=== PATIENT | male | born 1970 | race Caucasian/White ===

== ENCOUNTER 2016-08-28 12:03 | Emergency (ER) | payer SELFPAY ==
--- NOTE | 2016-08-28 12:19 | ER Document Report ---
ED Medical Screen (RME) - General Stated Complaint: CONGESTION,COUGH,VOMITING Notes: 46 yo male c/o cough and congestion x 2-3 weeks. shortness of breath worse x 3 days. + fever. + hx/o pneumonia. + smoker. + hx/o IDDM, HTN. feeling very thirsty past several days. + n/v. TRAVEL OUTSIDE OF THE [place] IN LAST 30 DAYS: No - Related Data Allergies/Adverse Reactions: Iodinated Contrast Media - Oral and Allergy (Severe, Verified 04/10/15 11:38) Anaphylaxis iodine Allergy (Severe, Verified 04/10/15 11:38) Anaphylaxis Penicillins Allergy (Severe, Verified 04/10/15 11:38) throat swelling Shellfish * [Shellfish] Allergy (Severe, Verified 04/10/15 11:38) Anaphylaxis Past Medical History - Past Medical History Cardiac Medical History: Reports: Hx Hypertension Denies: Hx Coronary Artery Disease, Hx Heart Attack Pulmonary Medical History: Reports: Hx Pneumonia - YEARS AGO Denies: Hx Asthma, Hx Bronchitis, Hx COPD Neurological Medical History: Denies: Hx Cerebrovascular Accident, Hx Seizures Endocrine Medical History: Reports: Hx Diabetes Mellitus Type 1, 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 GI Medical History: Reports: Hx Hiatal Hernia Musculoskeltal Medical History: Reports Hx Arthritis - GENERALIZED Psychiatric Medical History: Reports: Hx Depression Past Surgical History: Reports: Hx Orthopedic Surgery - L HIP - Immunizations Hx Diphtheria, Pertussis, Tetanus Vaccination: Yes Physical Exam - Vital signs Vitals: Temp Pulse Resp BP Pulse Ox 97.4 F 109 H 24 H 165/78 H 100 08/28/16 12:14 08/28/16 12:14 08/28/16 12:14 08/28/16 12:14 08/28/16 12:14 Course - Vital Signs Vital signs: Temp Pulse Resp BP Pulse Ox 97.4 F 109 H 24 H 165/78 H 100 08/28/16 12:14 08/28/16 12:14 08/28/16 12:14 08/28/16 12:14 08/28/16 12:14
--- NOTE | 2016-08-28 13:26 | ER Document Report ---
ED Respiratory Problem - General Chief Complaint: Breathing Difficulty Stated Complaint: CONGESTION,COUGH,VOMITING Time seen by provider: 13:26 Mode of Arrival: Ambulatory Information source: Patient Notes: 46 yo smoker diabetic male with cough and congestion for 3 weeks. No chest pain or shortness of breath, some vomiting, no diarrhea. No fever or chills. No inhaled bronchodilaters at home. TRAVEL OUTSIDE OF THE [place] IN LAST 30 DAYS: No - Related Data Allergies/Adverse Reactions: Iodinated Contrast Media - Oral and Allergy (Severe, Verified 08/28/16 12:18) Anaphylaxis iodine Allergy (Severe, Verified 08/28/16 12:18) Anaphylaxis Penicillins Allergy (Severe, Verified 08/28/16 12:18) throat swelling Shellfish * [Shellfish] Allergy (Severe, Verified 08/28/16 12:18) Anaphylaxis Past Medical History - General Information source: Patient - Social History Smoking Status: Current Every Day Smoker Chew tobacco use (# tins/day): No Frequency of alcohol use: None Drug Abuse: None Lives with: Spouse/Significant other Family History: Reviewed & Not Pertinent, DM - Relatives have both type I and type II diabetes respectively Patient has suicidal ideation: No Patient has homicidal ideation: No - Past Medical History Cardiac Medical History: Reports: Hx Hypertension Pulmonary Medical History: Reports: Hx Pneumonia - YEARS AGO Endocrine Medical History: Reports: Hx Diabetes Mellitus Type 1 GI Medical History: Reports: Hx Hiatal Hernia Musculoskeltal Medical History: Reports Hx Arthritis - GENERALIZED Psychiatric Medical History: Reports: Hx Depression Past Surgical History: Reports: Hx Orthopedic Surgery - L HIP - Immunizations Hx Diphtheria, Pertussis, Tetanus Vaccination: Yes Hx Pneumococcal Vaccination: 06/20/12 Review of Systems - Review of Systems Constitutional: No symptoms reported EENT: See HPI Cardiovascular: No symptoms reported Respiratory: See HPI Gastrointestinal: No symptoms reported Genitourinary: No symptoms reported Male Genitourinary: No symptoms reported Musculoskeletal: No symptoms reported Skin: No symptoms reported Hematologic/Lymphatic: No symptoms reported Neurological/Psychological: No symptoms reported Physical Exam - Vital signs Vitals: Temp Pulse Resp BP Pulse Ox 97.4 F 109 H 24 H 165/78 H 100 08/28/16 12:14 08/28/16 12:14 08/28/16 12:14 08/28/16 12:14 08/28/16 12:14 Interpretation: Normal - General General appearance: Alert, Anxious In distress: None - thin - HEENT Head: Normocephalic, Atraumatic Eyes: Normal Conjunctiva: Normal Pupils: PERRL Tympanic membrane: Normal Mucous membranes: Dry Pharynx: Erythema Neck: Supple. No: Lymphadenopathy - Respiratory Respiratory status: No respiratory distress Chest status: Nontender Breath sounds: Rhonchi, Wheezing - expiratory bilateral Chest palpation: Normal - Cardiovascular Rhythm: Regular Heart sounds: Normal auscultation Murmur: No - Abdominal Inspection: Normal Distension: No distension Bowel sounds: Normal Tenderness: Nontender Organomegaly: No organomegaly - Back Back: Normal, Nontender - Extremities General upper extremity: Normal inspection, Nontender, Normal color, Normal ROM , Normal temperature General lower extremity: Normal inspection, Nontender, Normal color, Normal ROM , Normal temperature, Normal weight bearing. No: Magdy's sign - Neurological Neuro grossly intact: Yes Cognition: Normal Orientation: AAOx4 Watson Coma Scale Eye Opening: Spontaneous Watson Coma Scale Verbal: Oriented Watson Coma Scale Motor: Obeys Commands Watson Coma Scale Total: 15 Speech: Normal Motor strength normal: LUE, RUE, LLE, RLE Sensory: Normal - Psychological Associated symptoms: Normal affect, Normal mood - Skin Skin Temperature: Warm Skin Moisture: Dry Skin Color: Normal Course - Re-evaluation Re-evalutation: 08/28/16 13:38 consult/presentation of pt to dr. lockwood per [facility] guidelines no lactate needed, no further orders., chest xray is neg per rad 08/28/16 14:24 no wheeze after nebulizer he feels better. 08/28/16 14:28 Patient goes to the [facility] for his follow-up. I'm giving him copies of labs and chest x-ray report. Discussed the plan for discharge and disposition with Dr. lockwood. tx pt with inhaled bronchodilaters, azitrhomycin, prednisone. - Vital Signs Vital signs: Temp Pulse Resp BP Pulse Ox 97.5 F 109 H 12 151/80 H 100 08/28/16 15:05 08/28/16 12:14 08/28/16 14:39 08/28/16 14:40 08/28/16 14:40 - Laboratory Result Diagrams: 08/28/16 13:30 08/28/16 13:30 Laboratory results interpreted by me: 08/28/16 13:30 Sodium 136.5 L Glucose 126 H Discharge - Discharge Clinical Impression: Bronchitis, upper respiratory infection, Wheezing, Elevated blood pressure reading Diabetes Qualifiers: Diabetes mellitus type: type 1 Diabetes mellitus complication status: without complication Qualified Code(s): E10.9 - Type 1 diabetes mellitus without complications Vomiting Qualifiers: Vomiting type: unspecified Vomiting Intractability: non-intractable Nausea presence: without nausea Qualified Code(s): R11.11 - Vomiting without nausea Condition: Good Disposition: HOME, SELF-CARE Instructions: Steroid Medication, Azithromycin ([facility]), Inhaled Bronchodilators ( [facility]), [facility], Stop Smoking ([facility]) Additional Instructions: plenty of fluids orally rest use the nebulizer at least 4 times per day use the inhaler 2 puffs every 3 hours as needed when not at home for cough and wheeze. to er if worse see [facility] this week for follow up of blood pressure and this illness follow your glucoses carefully, return if out of control stop smoking Prescriptions: Albuterol Sulfate [Ventolin 0.083% Neb 2.5 mg/3 mL Ampul] 2.5 mg NEB Q3HP PRN # 25 vial PRN Reason: Albuterol Sulfate [Proair HFA Inhalation Aerosol 8.5 gm MDI] 2 puff IH Q3HP PRN #1 hfa.aer.ad PRN Reason: Azithromycin [Zithromax] 250 mg PO DAILY #4 tablet Nebulizer [Nebulizer Machine] 1 each MC ASDIR PRN #1 kit PRN Reason: Prednisone [Deltasone 20 mg Tablet] 40 mg PO DAILY #8 tablet Forms: Return to Work Referrals: [facility] [Primary Care Provider] - Follow up as needed
[2016-08-28] MEDS ORDERED: NORMAL SALINE 1000 ML 1,000 ML IV ONE (13:36)
[2016-08-28] MEDS ORDERED: IPRATROPIUM/ALBUTEROL 0.5-2.5 MG/3 ML AMPUL NEB ONE (13:36)
[2016-08-28 13:45] LABS: ABSOLUTE BASOPHILS # (AUTO) 0.1 10^3/uL (0.0-0.2); ABSOLUTE EOSINOPHILS # (AUTO) 0.2 10^3/uL (0.0-0.6); ABSOLUTE LYMPHOCYTES (AUTO) 1.8 10^3/uL (0.5-4.7); ABSOLUTE MONOCYTES (AUTO) 0.4 10^3/uL (0.1-1.4); ABSOLUTE NEUT (AUTO) 4.9 10^3/uL (1.7-8.2); BASOPHILS % (AUTO) 0.9 % (0-2); EOSINOPHILS % (AUTO) 2.8 % (0-6); HEMATOCRIT 43.7 % (37.9-51.0); HEMOGLOBIN 14.7 g/dL (13.5-17.0); HGB HCT DIFFERENCE 0.4; LYMPHOCYTES % (AUTO) 24.2 % (13-45); MEAN CORPUSCULAR HEMOGLOBIN 30.5 pg (27.0-33.4); MEAN CORPUSCULAR HGB CONC 33.6 g/dL (32.0-36.0); MEAN CORPUSCULAR VOLUME 91 fl (80-97); RED BLOOD COUNT 4.81 10^6/uL (4.35-5.55); RED CELL DISTRIBUTION WIDTH 13.6 % (11.5-14.0); SEGMENTED NEUTROPHILS % (AUTO) 67.1 % (42-78); WHITE BLOOD COUNT 7.3 10^3/uL (4.0-10.5)
--- NOTE | 2016-08-28 13:50 | ER Document Report ---
Doctor's Note Notes: 08/28/16 13:49 46-year-old male with 3 week history of cough productive of white sputum, occasional nausea and poor appetite. He reports his continue to take his insulin. He denies chest or abdominal pain. Skin warm and dry Chest scattered rhonchi bilaterally breath sounds equal good aeration oxygen must use Heart regular rate and rhythm without murmur Extremities warm 2+ pulses no cyanosis no edema She has intermittently seen and examined by myself with treatment decisions approved by myself
[2016-08-28 14:09] LABS: ALANINE AMINOTRANSFERASE 40 U/L (21-72); ALBUMIN 4.1 g/dL (3.5-5.0); ALKALINE PHOSPHATASE 77 U/L (38-126); ANION GAP 9 (5-19); ASPARTATE AMINO TRANSFERASE 30 U/L (17-59); BILIRUBIN,TOTAL 0.6 mg/dL (0.2-1.3); BLOOD UREA NITROGEN 15 mg/dL (7-20); CALCIUM 10.1 mg/dL (8.4-10.2); CARBON DIOXIDE 29 mmol/L (22-30); CHLORIDE 99 mmol/L (98-107); CREATININE RESULT 1.05 mg/dL (0.52-1.25); GLUCOSE 126 mg/dL (75-110); LIPASE 123.3 U/L (23-300); POTASSIUM 4.6 mmol/L (3.6-5.0); SODIUM 136.5 mmol/L (137-145); TOTAL PROTEIN 6.8 g/dL (6.3-8.2)
[2016-08-28] MEDS ORDERED: PREDNISONE 20 MG TABLET PO ONE (14:26)
[2016-08-28] MEDS ORDERED: AZITHROMYCIN 250 MG TABLET PO ONE (14:26)
[2016-08-28 14:44] VITALS: BP 151/80
[2016-08-28] MEDS ORDERED: ALBUTEROL SULFATE HFA (90 MCG/PUFF) 200 PUFF/8.5 GM MDI IH ONE (15:00)
[2016-08-28 15:01] LABS: APPEARANCE,URINE CLEAR; BILIRUBIN,URINE NEGATIVE (NEGATIVE); GLUCOSE, URINE NEGATIVE (NEGATIVE); KETONES,URINE NEGATIVE (NEGATIVE); LEUKOCYTE ESTERASE,URINE NEGATIVE (NEGATIVE); NITRITE,URINE NEGATIVE (NEGATIVE); PROTEIN,URINE NEGATIVE (NEGATIVE); URINE SPECIFIC GRAVITY 1.008; UROBILINOGEN,URINE NEGATIVE mg/dL (<2.0)
== END 2016-08-28 13:05 | disposition home or self-care (01) ==
LOC: ER 12:03
DX: J40 Bronchitis, not specified as acute or chronic (principal); J06.9 Acute upper respiratory infection, unspecified; R11.11 Vomiting without nausea; R05 Cough; I10 Essential (primary) hypertension; E10.9 Type 1 diabetes mellitus without complications; R06.2 Wheezing; F17.200 Nicotine dependence, unspecified, uncomplicated; Z88.0 Allergy status to penicillin; Z91.041 Radiographic dye allergy status; Z91.013 Allergy to seafood; Z87.892 Personal history of anaphylaxis; Z87.01 Personal history of pneumonia (recurrent)
CPT/HCPCS: 94640; 99284; 96360; 36415; 83690; 85025; 80053; 81001; 71020; J7512; J7030; J3490; J7620

== ENCOUNTER 2016-09-03 16:51 | Emergency (ER) | payer SELFPAY ==
--- NOTE | 2016-09-03 17:18 | ER Document Report ---
ED Medical Screen (RME) - General Chief Complaint: Breathing Difficulty Stated Complaint: DIFFICULTY BREATHING,COUGH,CONGESTION Time seen by provider: 17:16 Mode of Arrival: Ambulatory Information source: Patient Notes: 46-year-old male presents to ED for cough cold congestion for about 3 weeks. States they were in the emergency room last week. Recently quit smoking. Denies history of COPD. Inspiratory and expiratory wheezes at this time. I have greeted and performed a rapid initial assessment of this patient. A comprehensive ED assessment and evaluation of the patient, analysis of test results and completion of medical decision making process will be conducted by an additional ED providers. TRAVEL OUTSIDE OF THE [place] IN LAST 30 DAYS: No - Related Data Allergies/Adverse Reactions: Iodinated Contrast Media - Oral and Allergy (Severe, Verified 08/28/16 12:18) Anaphylaxis iodine Allergy (Severe, Verified 08/28/16 12:18) Anaphylaxis Penicillins Allergy (Severe, Verified 08/28/16 12:18) throat swelling Shellfish * [Shellfish] Allergy (Severe, Verified 08/28/16 12:18) Anaphylaxis Past Medical History - Past Medical History Cardiac Medical History: Reports: Hx Hypertension Denies: Hx Coronary Artery Disease, Hx Heart Attack Pulmonary Medical History: Reports: Hx Pneumonia - YEARS AGO Denies: Hx Asthma, Hx Bronchitis, Hx COPD Neurological Medical History: Denies: Hx Cerebrovascular Accident, Hx Seizures Endocrine Medical History: Reports: Hx Diabetes Mellitus Type 1, 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 Renal/ Medical History: Denies: Hx Peritoneal Dialysis GI Medical History: Reports: Hx Hiatal Hernia Musculoskeltal Medical History: Reports Hx Arthritis - GENERALIZED Psychiatric Medical History: Reports: Hx Depression Past Surgical History: Reports: Hx Orthopedic Surgery - L HIP - Immunizations Hx Diphtheria, Pertussis, Tetanus Vaccination: Yes Physical Exam - Vital signs Vitals: Temp Pulse Resp BP Pulse Ox 98.4 F 91 18 137/68 H 100 09/03/16 17:09/03/16 17:09/03/16 17:09/03/16 17:09/03/16 17:09 Course - Vital Signs Vital signs: Temp Pulse Resp BP Pulse Ox 98.4 F 91 18 137/68 H 100 09/03/16 17:09 09/03/16 17:09 09/03/16 17:09/03/16 17:09 09/03/16 17:09
[2016-09-03] MEDS ORDERED: IPRATROPIUM/ALBUTEROL 0.5-2.5 MG/3 ML AMPUL NEB ONE ×3 (17:19→22:43)
[2016-09-03] MEDS: ALBUTEROL SULFATE 0.083% NEB 2.5 MG/3 ML AMPUL NEB SCH ×2 (17:28→20:27)
[2016-09-03] MEDS ORDERED: NORMAL SALINE 1000 ML 1,000 ML IV ONE ×2 (19:22→21:41)
[2016-09-03] MEDS ORDERED: LEVOFLOXACIN 750 MG TABLET PO ONE (19:23)
--- NOTE | 2016-09-03 19:23 | ER Document Report ---
ED Respiratory Problem - General Mode of Arrival: Ambulatory Information source: Patient TRAVEL OUTSIDE OF THE [place] IN LAST 30 DAYS: No - HPI Patient complains to provider of: Cough, Short of breath Onset: Other - 3 weeks ago Duration: Worse/persistent Context: Other - see above Associated symptoms: Other - see above <LACEY PEREZ - Last Filed: 09/03/16 21:05> <BERNADINE PALACIOS - Last Filed: 09/04/16 03:28> - General Chief Complaint: Cough Stated Complaint: DIFFICULTY BREATHING,COUGH,CONGESTION Notes: 46 year old male with history of type 1 diabetes and smoking presents to the ED complaining of a cough and chest congestion for the past 3 weeks. Patient is additionally complaining of shortness of breath and fever. Patient states that his symptoms worsened today and have been progressively worsening since symptoms began. Patient was seen in the ED 6 days ago for the same symptoms and was put on steroids. The complains that the patient's blood glucose levels were elevated after being put on steroids. Patient states that breathing treatments have not helped his symptoms. Patient additionally states that he has been having difficulty keeping his blood sugar below 250. Patient denies history of asthma, COPD, and blood clots. Patient denies receiving the flu or pneumonia shot. Patient receives primary care at the [facility]. ( LACEY PEREZ) - Related Data Allergies/Adverse Reactions: Iodinated Contrast Media - Oral and Allergy (Severe, Verified 09/03/16 17:18) Anaphylaxis iodine Allergy (Severe, Verified 09/03/16 17:18) Anaphylaxis Penicillins Allergy (Severe, Verified 09/03/16 17:18) throat swelling Shellfish * [Shellfish] Allergy (Severe, Verified 09/03/16 17:18) Anaphylaxis Past Medical History - General Information source: Patient - Social History Smoking Status: Former Smoker Chew tobacco use (# tins/day): No Frequency of alcohol use: None Drug Abuse: None Family History: Reviewed & Not Pertinent, DM - Relatives have both type I and type II diabetes respectively Patient has suicidal ideation: No Patient has homicidal ideation: No - Past Medical History Cardiac Medical History: Reports: Hx Hypertension Denies: Hx DVT Pulmonary Medical History: Reports: Hx Pneumonia - YEARS AGO Denies: Hx Asthma, Hx COPD Endocrine Medical History: Reports: 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 GI Medical History: Reports: Hx Hiatal Hernia Musculoskeltal Medical History: Reports Hx Arthritis - GENERALIZED Psychiatric Medical History: Reports: Hx Depression Past Surgical History: Reports: Hx Orthopedic Surgery - L HIP - Immunizations Hx Diphtheria, Pertussis, Tetanus Vaccination: Yes Hx Pneumococcal Vaccination: 06/20/12 <LACEY PEREZ - Last Filed: 09/03/16 21:05> Review of Systems - Review of Systems Constitutional: See HPI, Fever EENT: No symptoms reported Cardiovascular: No symptoms reported Respiratory: See HPI, Cough, Short of breath, Other - chest congestion Gastrointestinal: No symptoms reported Genitourinary: No symptoms reported Male Genitourinary: No symptoms reported Musculoskeletal: No symptoms reported Skin: No symptoms reported Hematologic/Lymphatic: No symptoms reported Neurological/Psychological: No symptoms reported -: Yes All other systems reviewed and negative <LACEY PEREZ - Last Filed: 09/03/16 21:05> Physical Exam - Vital signs Interpretation: Normal - General General appearance: Alert In distress: None - HEENT Head: Normocephalic, Atraumatic Eyes: Normal Extraocular movements intact: Yes Pupils: PERRL - Respiratory Respiratory status: No respiratory distress Breath sounds: Wheezing - bilaterally, Other - decreased breath sounds at the right base. No: Normal - Cardiovascular Rhythm: Regular Heart sounds: Normal auscultation - Abdominal Inspection: Normal - Back Back: Normal - Extremities General upper extremity: Normal inspection, Normal ROM General lower extremity: Normal inspection, Normal ROM - Neurological Neuro grossly intact: Yes Cognition: Normal Orientation: AAOx4 Mychal Coma Scale Eye Opening: Spontaneous Mychal Coma Scale Verbal: Oriented [place] Coma Scale Motor: Obeys Commands [place] Coma Scale Total: 15 Speech: Normal - Psychological Associated symptoms: Normal affect, Normal mood - Skin Skin Temperature: Warm Skin Moisture: Dry Skin Color: Normal <LACEY PEREZ - Last Filed: 09/03/16 21:05> <BERNADINE PALACIOS - Last Filed: 09/04/16 03:28> - Vital signs Vitals: Temp Pulse Resp BP Pulse Ox 98.4 F 91 18 137/68 H 100 09/03/16 17:09 09/03/16 17:09 09/03/16 17:09 09/03/16 17:09 09/03/16 17:09 (LACEY PEREZ) (BERNADINE PALACIOS) Course - Laboratory Result Diagrams: 09/03/16 20:15 09/03/16 20:15 <LACEY PEREZ - Last Filed: 09/03/16 21:05> - Laboratory Result Diagrams: 09/03/16 20:15 09/03/16 20:15 - Diagnostic Test Radiology reviewed: Image reviewed, Reports reviewed <BERNADINE PALACIOS - Last Filed: 09/04/16 03:28> - Re-evaluation Re-evalutation: 09/03/16 Patient is a 46-year-old male who comes in with persistent cough, difficulty breathing. Patient has a history of diabetes and has a difficult times taking steroids due to hyperglycemia. Patient has been watched in the emergency department for a few hours. He has responded well to nebulizer treatments. Blood work and chest x-ray with within normal limits; however, the patient clinically appears to have pneumonia. He'll be started on Levaquin. He is to follow-up with his doctor. He has been given a prescription for nebulizer and DuoNeb. He is also been given a prescription for low-dose of prednisone. Return if any worsening or concerning symptoms. Ambulated around the emergency department and maintained his oxygen saturation at 97%. Vitals are stable. Stable for discharge home. Understands and agrees with plan. (BERNADINE PALACIOS) - Vital Signs Vital signs: Temp Pulse Resp BP Pulse Ox 98.4 F 91 18 137/68 H 100 09/03/16 17:09 09/03/16 17:09 09/03/16 17:09 09/03/16 17:09 09/03/16 17:09 (LACEY PEREZ) (BERNADINE PALACIOS) - Laboratory Laboratory results interpreted by me: 09/03/16 09/03/16 09/03/16 20:15 20:15 20:22 RBC 3.97 L Hgb 12.1 L Hct 35.5 L Monocytes % 14.3 H Sodium 128.5 L Chloride 95 L Glucose 253 H POC Glucose Total Protein 6.0 L Urine Ketones 20 H Urine Ascorbic Acid 20 H 09/03/16 21:22 RBC Hgb Hct Monocytes % Sodium Chloride Glucose POC Glucose 294 H Total Protein Urine Ketones Urine Ascorbic Acid (BERNADINE PALACIOS) Critical Care Note - Critical Care Note Total time excluding time spent on procedures (mins): 35 - evaluation and management of respiratory distress with multiple re-evaluations, counseling patient, management of bronchospasm <BERNADINE PALACIOS - Last Filed: 09/04/16 03:28> Discharge <LACEY PEREZ - Last Filed: 09/03/16 21:05> <BERNADINE PALACIOS - Last Filed: 09/04/16 03:28> - Discharge Clinical Impression: Hyperglycemia, Wheezing, Respiratory distress Pneumonia Qualifiers: Pneumonia type: due to unspecified organism Laterality: unspecified laterality Lung location: unspecified part of lung Qualified Code(s): J18.9 - Pneumonia, unspecified organism Condition: Stable Disposition: HOME, SELF-CARE Instructions: Pneumonia ([facility]), Bronchospasm ([facility]), Bronchodilators ([facility]) Prescriptions: Acetaminophen with Codeine [Tylenol with Codeine #3 Tablet] 1 tab PO BIDP PRN # 20 tab PRN Reason: Ipratropium/Albuterol Sulfate [Duoneb 3 ml Ampul] 3 ml NEB RTQ4HP PRN #30 vial.neb PRN Reason: Levofloxacin [Levaquin 750 mg Tablet] 750 mg PO DAILY #5 tablet Nebulizer [Nebulizer Machine] 1 each MC ASDIR PRN #1 kit PRN Reason: Prednisone 10 mg PO DAILY #4 tablet Forms: Return to Work, Elevated Blood Pressure, Smoking Cessation Education Scribe Attestation: 09/04/16 03:28 I personally performed the services described in the documentation, reviewed and edited the documentation which was dictated to the scribe in my presence, and it accurately records my words and actions. (BERNADINE PALACIOS) Scribe Documentation - Scribe Written by Reiibagustín:: Galdino Hester, 09/03/2016 20:29 acting as scribe for :: Manju <LACEY PEREZ - Last Filed: 09/03/16 21:05>
[2016-09-03 20:34] LABS: ABSOLUTE BASOPHILS # (AUTO) 0.1 10^3/uL (0.0-0.2); ABSOLUTE EOSINOPHILS # (AUTO) 0.1 10^3/uL (0.0-0.6); ABSOLUTE LYMPHOCYTES (AUTO) 0.9 10^3/uL (0.5-4.7); ABSOLUTE MONOCYTES (AUTO) 0.8 10^3/uL (0.1-1.4); ABSOLUTE NEUT (AUTO) 3.8 10^3/uL (1.7-8.2); HEMATOCRIT 35.5 % (37.9-51.0); HEMOGLOBIN 12.1 g/dL (13.5-17.0); HGB HCT DIFFERENCE 0.8; LYMPHOCYTES % (AUTO) 15.5 % (13-45); MEAN CORPUSCULAR HEMOGLOBIN 30.6 pg (27.0-33.4); MEAN CORPUSCULAR HGB CONC 34.1 g/dL (32.0-36.0); MEAN CORPUSCULAR VOLUME 90 fl (80-97); MONOCYTES % (AUTO) 14.3 % (3-13); RED BLOOD COUNT 3.97 10^6/uL (4.35-5.55); RED CELL DISTRIBUTION WIDTH 13.2 % (11.5-14.0); SEGMENTED NEUTROPHILS % (AUTO) 68.2 % (42-78); WHITE BLOOD COUNT 5.5 10^3/uL (4.0-10.5)
[2016-09-03 20:42] LABS: APPEARANCE,URINE CLEAR; BILIRUBIN,URINE NEGATIVE (NEGATIVE); GLUCOSE, URINE NEGATIVE (NEGATIVE); KETONES,URINE 20 mg/dL (NEGATIVE); LEUKOCYTE ESTERASE,URINE NEGATIVE (NEGATIVE); NITRITE,URINE NEGATIVE (NEGATIVE); PROTEIN,URINE NEGATIVE (NEGATIVE); URINE SPECIFIC GRAVITY 1.005; UROBILINOGEN,URINE NEGATIVE mg/dL (<2.0)
[2016-09-03 20:42] LABS: PROTHROMBIN TIME 12.2 SEC (11.4-15.4)
[2016-09-03 20:58] LABS: ALANINE AMINOTRANSFERASE 34 U/L (21-72); ALBUMIN 3.8 g/dL (3.5-5.0); ALKALINE PHOSPHATASE 69 U/L (38-126); ANION GAP 11 (5-19); ASPARTATE AMINO TRANSFERASE 25 U/L (17-59); BILIRUBIN,TOTAL 0.6 mg/dL (0.2-1.3); BLOOD UREA NITROGEN 18 mg/dL (7-20); CALCIUM 9.1 mg/dL (8.4-10.2); CARBON DIOXIDE 23 mmol/L (22-30); CHLORIDE 95 mmol/L (98-107); CREATININE RESULT 1.13 mg/dL (0.52-1.25); GLUCOSE 253 mg/dL (75-110); POTASSIUM 4.5 mmol/L (3.6-5.0); SODIUM 128.5 mmol/L (137-145)
[2016-09-03] MEDS ORDERED: INSULIN REG, HUMAN 100 UNIT/ML 3 ML VIAL (PYX) IV ONE (21:42)
[2016-09-03 22:39] LABS: VENOUS BLOOD BASE EXCESS -3.8 mmol/L; VENOUS BLOOD HCO3 20.6 mmol/L (20-32); VENOUS BLOOD PCO2 35.1 mmHg (35-63); VENOUS BLOOD PH 7.39 (7.30-7.42)
[2016-09-03] MEDS ORDERED: ACETAMINOPHEN WITH CODEINE #3 TABLET PO ONE (22:43)
[2016-09-03] MEDS ORDERED: ALBUTEROL SULFATE HFA (90 MCG/PUFF) 8 GM MDI (1 MDI/ER DISP) IH ONE (23:53)
[2016-09-04 00:15] VITALS: BP 116/71
== END 2016-09-04 00:16 | disposition home or self-care (01) ==
LOC: ER 16:51
DX: J18.9 Pneumonia, unspecified organism (principal); R73.9 Hyperglycemia, unspecified; R06.2 Wheezing; R06.00 Dyspnea, unspecified; R05 Cough; R06.02 Shortness of breath; R09.81 Nasal congestion; Z87.891 Personal history of nicotine dependence
CPT/HCPCS: 94640 ×2; 99285; 96360; 96361; 36415; 87040; 87086; 82962; 85025; 85610; 87077; 80053; 81001; 82803; 83605; 87804; 71020; J1815; J7030; J3490; J7620; 87186

== ENCOUNTER 2016-11-26 09:56 | Emergency (ER) | payer SELFPAY ==
[2016-11-26] MEDS ORDERED: NORMAL SALINE 1000 ML 1,000 ML IV PRN (10:36)
[2016-11-26] MEDS ORDERED: ONDANSETRON 4 MG TAB.RAPDIS SL ONE (10:36)
--- NOTE | 2016-11-26 10:38 | ER Document Report ---
ED Medical Screen (RME) - General Chief Complaint: Vomiting Stated Complaint: NAUSEA,ARM PAIN, EAR PAIN Time seen by provider: 10:36 Mode of Arrival: Ambulatory Information source: Patient TRAVEL OUTSIDE OF THE [place] IN LAST 30 DAYS: No - HPI Patient complains to provider of: nausea, vomiting, high blood sugars, left ear pain Onset: Last week Onset/Duration: Gradual, Persistent Quality of pain: Achy, Cramping Severity: Mild Pain Level: 2 Associated Symptoms: Body/muscle aches, Diarrhea, Nausea, Vomiting Exacerbated by: Food Relieved by: Denies Similar symptoms previously: No Recently seen / treated by doctor: No Notes: 11/26/16 10:37 46 y/o male, diabetic with nausea and vomiting x 1 week, left ear pain and drainage and high blood sugars at home, took 5 units insulin this am PMD- [facility] - Related Data Allergies/Adverse Reactions: Iodinated Contrast Media - Oral and Allergy (Severe, Verified 11/26/16 10:03) Anaphylaxis iodine Allergy (Severe, Verified 11/26/16 10:03) Anaphylaxis Penicillins Allergy (Severe, Verified 11/26/16 10:03) throat swelling Shellfish * [Shellfish] Allergy (Severe, Verified 11/26/16 10:03) Anaphylaxis Past Medical History - Past Medical History Cardiac Medical History: Reports: Hx Hypertension Denies: Hx Coronary Artery Disease, Hx DVT, Hx Heart Attack Pulmonary Medical History: Reports: Hx Pneumonia - YEARS AGO Denies: Hx Asthma, Hx Bronchitis, Hx COPD Neurological Medical History: Denies: Hx Cerebrovascular Accident, Hx Seizures Endocrine Medical History: Reports: 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, 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 Renal/ Medical History: Denies: Hx Peritoneal Dialysis GI Medical History: Reports: Hx Hiatal Hernia Musculoskeltal Medical History: Reports Hx Arthritis - GENERALIZED Psychiatric Medical History: Reports: Hx Depression Past Surgical History: Reports: Hx Orthopedic Surgery - L HIP - Immunizations Hx Diphtheria, Pertussis, Tetanus Vaccination: Yes Physical Exam - Vital signs Vitals: Temp Pulse Resp BP Pulse Ox 98.1 F 88 16 143/76 H 100 11/26/16 10:02 11/26/16 10:02 11/26/16 10:02 11/26/16 10:02 11/26/16 10:02 Course - Vital Signs Vital signs: Temp Pulse Resp BP Pulse Ox 98.1 F 88 16 143/76 H 100 11/26/16 10:02 11/26/16 10:02 11/26/16 10:02 11/26/16 10:02 11/26/16 10:02
[2016-11-26 11:01] LABS: ABSOLUTE BASOPHILS # (AUTO) 0.1 10^3/uL (0.0-0.2); ABSOLUTE EOSINOPHILS # (AUTO) 0.1 10^3/uL (0.0-0.6); ABSOLUTE LYMPHOCYTES (AUTO) 1.4 10^3/uL (0.5-4.7); ABSOLUTE MONOCYTES (AUTO) 0.4 10^3/uL (0.1-1.4); ABSOLUTE NEUT (AUTO) 6.2 10^3/uL (1.7-8.2); EOSINOPHILS % (AUTO) 0.6 % (0-6); HEMATOCRIT 38.3 % (37.9-51.0); HEMOGLOBIN 13.6 g/dL (13.5-17.0); HGB HCT DIFFERENCE 2.5; LYMPHOCYTES % (AUTO) 16.9 % (13-45); MEAN CORPUSCULAR HEMOGLOBIN 31.4 pg (27.0-33.4); MEAN CORPUSCULAR HGB CONC 35.5 g/dL (32.0-36.0); MEAN CORPUSCULAR VOLUME 88 fl (80-97); MONOCYTES % (AUTO) 5.4 % (3-13); RED BLOOD COUNT 4.34 10^6/uL (4.35-5.55); RED CELL DISTRIBUTION WIDTH 12.9 % (11.5-14.0); SEGMENTED NEUTROPHILS % (AUTO) 76.1 % (42-78); WHITE BLOOD COUNT 8.1 10^3/uL (4.0-10.5)
[2016-11-26 11:20] LABS: APPEARANCE,URINE CLEAR; BILIRUBIN,URINE NEGATIVE (NEGATIVE); GLUCOSE, URINE NEGATIVE (NEGATIVE); KETONES,URINE NEGATIVE (NEGATIVE); LEUKOCYTE ESTERASE,URINE NEGATIVE (NEGATIVE); NITRITE,URINE NEGATIVE (NEGATIVE); PROTEIN,URINE NEGATIVE (NEGATIVE); URINE SPECIFIC GRAVITY 1.003; UROBILINOGEN,URINE NEGATIVE mg/dL (<2.0)
[2016-11-26 11:26] LABS: ALANINE AMINOTRANSFERASE 35 U/L (21-72); ALBUMIN 4.3 g/dL (3.5-5.0); ALKALINE PHOSPHATASE 65 U/L (38-126); ANION GAP 9 (5-19); ASPARTATE AMINO TRANSFERASE 25 U/L (17-59); BILIRUBIN,DIRECT 0.3 mg/dL (0.0-0.4); BILIRUBIN,TOTAL 0.6 mg/dL (0.2-1.3); BLOOD UREA NITROGEN 16 mg/dL (7-20); CALCIUM 9.7 mg/dL (8.4-10.2); CARBON DIOXIDE 28 mmol/L (22-30); CHLORIDE 95 mmol/L (98-107); CREATININE RESULT 1.15 mg/dL (0.52-1.25); GLUCOSE 81 mg/dL (75-110); LIPASE 119.4 U/L (23-300); SODIUM 131.9 mmol/L (137-145); TOTAL PROTEIN 6.6 g/dL (6.3-8.2)
[2016-11-26] MEDS ORDERED: ONDANSETRON 4 MG TAB.RAPDIS PO ONE (14:19)
--- NOTE | 2016-11-26 14:25 | ER Document Report ---
ED General - General Chief Complaint: Vomiting Stated Complaint: NAUSEA,ARM PAIN, EAR PAIN Mode of Arrival: Ambulatory TRAVEL OUTSIDE OF THE [place] IN LAST 30 DAYS: No - HPI Patient complains to provider of: nausea vomiting diarrhea multiple other complaints Notes: Patient's coming in for nausea vomiting diarrhea ongoing for last week. Patient denies any sick contacts. Patient is sitting the Mountain Dew is bedside patient states he is tolerating some oral continues to have some nausea no diarrheas for the last 24 hours. Denies any recent antibiotics denies any new pets. Patient also complains of a lump being under his right armpit states is been in existence for approximately 2 weeks. Patient also complains of drainage out of his years. States is been ongoing for approximately a week. Denies any fevers chills abdominal pain chest pain. Patient is diabetic also is concerned about his blood sugar stating that they will increased throughout the day to very high levels however are resolved with administration of his insulin - Related Data Allergies/Adverse Reactions: Iodinated Contrast Media - Oral and Allergy (Severe, Verified 11/26/16 10:03) Anaphylaxis iodine Allergy (Severe, Verified 11/26/16 10:03) Anaphylaxis Penicillins Allergy (Severe, Verified 11/26/16 10:03) throat swelling Shellfish * [Shellfish] Allergy (Severe, Verified 11/26/16 10:03) Anaphylaxis Past Medical History - General Information source: Patient - Social History Smoking Status: Current Every Day Smoker Frequency of alcohol use: None Drug Abuse: None Family History: Reviewed & Not Pertinent, DM - Relatives have both type I and type II diabetes respectively Patient has suicidal ideation: No Patient has homicidal ideation: No - Past Medical History Cardiac Medical History: Reports: Hx Hypertension Denies: Hx Coronary Artery Disease, Hx DVT, Hx Heart Attack Pulmonary Medical History: Reports: Hx Pneumonia - YEARS AGO Denies: Hx Asthma, Hx Bronchitis, Hx COPD Neurological Medical History: Denies: Hx Cerebrovascular Accident, Hx Seizures Endocrine Medical History: Reports: 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, 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 Renal/ Medical History: Denies: Hx Peritoneal Dialysis GI Medical History: Reports: Hx Hiatal Hernia Musculoskeltal Medical History: Reports Hx Arthritis - GENERALIZED Psychiatric Medical History: Reports: Hx Depression Past Surgical History: Reports: Hx Orthopedic Surgery - L HIP - Immunizations Hx Diphtheria, Pertussis, Tetanus Vaccination: Yes Hx Pneumococcal Vaccination: 06/20/12 Review of Systems - Review of Systems Constitutional: No symptoms reported EENT: No symptoms reported Cardiovascular: No symptoms reported Respiratory: No symptoms reported Gastrointestinal: Abdominal pain, Diarrhea, Nausea, Vomiting Genitourinary: No symptoms reported Male Genitourinary: No symptoms reported Musculoskeletal: No symptoms reported Skin: No symptoms reported Hematologic/Lymphatic: No symptoms reported Neurological/Psychological: No symptoms reported -: Yes All other systems reviewed and negative Physical Exam - Vital signs Vitals: Temp Pulse Resp BP Pulse Ox 98.1 F 88 16 143/76 H 100 11/26/16 10:02 11/26/16 10:02 11/26/16 10:02 11/26/16 10:02 11/26/16 10:02 Interpretation: Normal - General General appearance: Appears well, Alert - HEENT Head: Normocephalic, Atraumatic Eyes: Normal Pupils: PERRL Ears: Normal External canal: Other - Bilateral cerumen in the canals there is no signs of otitis external. Tympanic membrane: Normal - Respiratory Respiratory status: No respiratory distress Chest status: Nontender Breath sounds: Normal Chest palpation: Normal - Cardiovascular Rhythm: Regular Heart sounds: Normal auscultation Murmur: No - Abdominal Inspection: Normal Distension: No distension Bowel sounds: Normal Tenderness: Nontender Organomegaly: No organomegaly - Back Back: Normal, Nontender - Extremities General upper extremity: Normal inspection, Nontender, Normal color, Normal ROM , Normal temperature, Other - Patient does have a freely mobile small pea-like lymph node in the right axilla that was ultrasounded no signs of abscess. Nontender General lower extremity: Normal inspection, Nontender, Normal color, Normal ROM , Normal temperature, Normal weight bearing. No: Magdy's sign - Neurological Neuro grossly intact: Yes Cognition: Normal Orientation: AAOx4 Mychal Coma Scale Eye Opening: Spontaneous Mychal Coma Scale Verbal: Oriented Mychal Coma Scale Motor: Obeys Commands Desmet Coma Scale Total: 15 Speech: Normal Motor strength normal: LUE, RUE, LLE, RLE Sensory: Normal - Psychological Associated symptoms: Normal affect, Normal mood - Skin Skin Temperature: Warm Skin Moisture: Dry Skin Color: Normal Course - Re-evaluation Re-evalutation: 11/26/16 15:27 Patient will be given the debrox the ceruminous ears. Patient's lymph node is very nonspecific encouraged patient to have his primary care physician continue to monitor. Patient was able tolerate by mouth here. Laboratory showed low sodium and a mildly elevated A1c however no signs of a TTS or DKA. Patient will be given anti-medics for home. Patient will be discharged - Vital Signs Vital signs: Temp Pulse Resp BP Pulse Ox 97.4 F 65 18 150/79 H 100 11/26/16 14:58 11/26/16 14:58 11/26/16 14:58 11/26/16 14:58 11/26/16 14:58 - Laboratory Result Diagrams: 11/26/16 10:45 11/26/16 10:45 Laboratory results interpreted by me: 11/26/16 11/26/16 11/26/16 10:45 10:45 10:45 RBC 4.34 L Sodium 131.9 L Chloride 95 L Hemoglobin A1c % 6.2 H Discharge - Discharge Clinical Impression: Nausea vomiting and diarrhea, solitary lymph node right armpit Otorrhea Qualifiers: Laterality: unspecified laterality Qualified Code(s): H92.10 - Otorrhea, unspecified ear Condition: Good Disposition: HOME, SELF-CARE Instructions: Gastroenteritis (adult) (COUNTS INCLUDE 234 BEDS AT THE [facility]) Additional Instructions: More likely you have contacted a GI virus causing symptoms. Please take the nausea medication as prescribed. I do not see any signs of infection on examination of your ears however there is some buildup of wax I will prescribe you debrocks solution to help remove the wax. This is [id number]. Return to the ER if symptoms worsen. Please continue to monitor the lymph node underneath your armpit. If this changes please let your physician know please let your physician monitor this lymph node. Please refrain from using the Reglan and Phenergan together Prescriptions: Carbamide Peroxide [Debrox 6.5 % Otic Drops 15 ml] 10 drop OT BID #1 bottle Metoclopramide HCl [Reglan] 5 mg PO Q6 #30 tablet Promethazine HCl [Phenergan 25 mg Supp.rect] 1 supp [place] Q6H #12 supp.rect Forms: Return to Work
[2016-11-26 14:59] VITALS: BP 150/79
== END 2016-11-26 14:59 | disposition home or self-care (01) ==
LOC: ER 09:56
DX: R11.2 Nausea with vomiting, unspecified (principal); R19.7 Diarrhea, unspecified; H92.10 Otorrhea, unspecified ear; H61.23 Impacted cerumen, bilateral; E10.40 Type 1 diabetes mellitus with diabetic neuropathy, unspecified; I10 Essential (primary) hypertension; Z88.0 Allergy status to penicillin; Z87.892 Personal history of anaphylaxis; Z91.041 Radiographic dye allergy status; Z91.013 Allergy to seafood
CPT/HCPCS: 99284; 96360; 36415; 87086; 83690; 85025; 80053; 81001; 83036; S0119; J7030

== ENCOUNTER 2016-12-19 11:28 | Emergency (ER) | payer SELFPAY ==
[2016-12-19] MEDS ORDERED: NORMAL SALINE 1000 ML 1,000 ML IV ONE (12:09)
--- NOTE | 2016-12-19 12:11 | ER Document Report ---
ED Medical Screen (RME) - General Chief Complaint: Abdominal Pain Stated Complaint: ABDOMINAL PAIN,VOMITING,NAUSEA Time Seen by Provider: 12/19/16 12:07 Mode of Arrival: Ambulatory Information source: Patient Notes: Patient presents to the emergency department with complaints of nausea and vomiting since Friday. Reports he is a DM1. Reports his glucose is reading high. He reports he took 12 units of his novulog 4 hours ago. Denies fever and diarrhea TRAVEL OUTSIDE OF THE [place] IN LAST 30 DAYS: No - Related Data Allergies/Adverse Reactions: Iodinated Contrast Media - Oral and Allergy (Severe, Verified 12/19/16 12:02) Anaphylaxis iodine Allergy (Severe, Verified 12/19/16 12:02) Anaphylaxis Penicillins Allergy (Severe, Verified 12/19/16 12:02) throat swelling Shellfish * [Shellfish] Allergy (Severe, Verified 12/19/16 12:02) Anaphylaxis Past Medical History - Past Medical History Cardiac Medical History: Reports: Hx Hypertension Denies: Hx Coronary Artery Disease, Hx DVT, Hx Heart Attack Pulmonary Medical History: Reports: Hx Pneumonia - YEARS AGO Denies: Hx Asthma, Hx Bronchitis, Hx COPD Neurological Medical History: Denies: Hx Cerebrovascular Accident, Hx Seizures Endocrine Medical History: Reports: 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, 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 Renal/ Medical History: Denies: Hx Peritoneal Dialysis GI Medical History: Reports: Hx Hiatal Hernia Musculoskeltal Medical History: Reports Hx Arthritis - GENERALIZED Psychiatric Medical History: Reports: Hx Depression Past Surgical History: Reports: Hx Orthopedic Surgery - L HIP - Immunizations Hx Diphtheria, Pertussis, Tetanus Vaccination: Yes Physical Exam - Vital signs Vitals: Temp Pulse Resp BP Pulse Ox 98 F 86 18 142/78 H 99 12/19/16 11:36 12/19/16 11:36 12/19/16 11:36 12/19/16 11:36 12/19/16 11:36 Course - Vital Signs Vital signs: Temp Pulse Resp BP Pulse Ox 98 F 86 18 142/78 H 99 12/19/16 11:36 12/19/16 11:36 12/19/16 11:36 12/19/16 11:36 12/19/16 11:36
[2016-12-19 13:12] LABS: APPEARANCE,URINE CLEAR; BILIRUBIN,URINE NEGATIVE (NEGATIVE); GLUCOSE, URINE NEGATIVE (NEGATIVE); KETONES,URINE NEGATIVE (NEGATIVE); LEUKOCYTE ESTERASE,URINE NEGATIVE (NEGATIVE); NITRITE,URINE NEGATIVE (NEGATIVE); PROTEIN,URINE NEGATIVE (NEGATIVE); URINE SPECIFIC GRAVITY 1.008; UROBILINOGEN,URINE NEGATIVE mg/dL (<2.0)
[2016-12-19 13:32] LABS: ABSOLUTE BASOPHILS # (AUTO) 0.1 10^3/uL (0.0-0.2); ABSOLUTE EOSINOPHILS # (AUTO) 0.1 10^3/uL (0.0-0.6); ABSOLUTE LYMPHOCYTES (AUTO) 1.6 10^3/uL (0.5-4.7); ABSOLUTE MONOCYTES (AUTO) 0.5 10^3/uL (0.1-1.4); ABSOLUTE NEUT (AUTO) 5.6 10^3/uL (1.7-8.2); BASOPHILS % (AUTO) 1.2 % (0-2); EOSINOPHILS % (AUTO) 1.5 % (0-6); HEMATOCRIT 38.6 % (37.9-51.0); HEMOGLOBIN 12.9 g/dL (13.5-17.0); HGB HCT DIFFERENCE 0.1; LYMPHOCYTES % (AUTO) 20.5 % (13-45); MEAN CORPUSCULAR HEMOGLOBIN 30.4 pg (27.0-33.4); MEAN CORPUSCULAR HGB CONC 33.5 g/dL (32.0-36.0); MEAN CORPUSCULAR VOLUME 91 fl (80-97); MONOCYTES % (AUTO) 6.3 % (3-13); RED BLOOD COUNT 4.26 10^6/uL (4.35-5.55); RED CELL DISTRIBUTION WIDTH 13.2 % (11.5-14.0); SEGMENTED NEUTROPHILS % (AUTO) 70.5 % (42-78); WHITE BLOOD COUNT 7.9 10^3/uL (4.0-10.5)
[2016-12-19 13:40] LABS: ALANINE AMINOTRANSFERASE 46 U/L (21-72); ALBUMIN 3.8 g/dL (3.5-5.0); ALKALINE PHOSPHATASE 59 U/L (38-126); ANION GAP 9 (5-19); ASPARTATE AMINO TRANSFERASE 26 U/L (17-59); BILIRUBIN,DIRECT 0.2 mg/dL (0.0-0.4); BILIRUBIN,TOTAL 0.4 mg/dL (0.2-1.3); BLOOD UREA NITROGEN 17 mg/dL (7-20); CALCIUM 9.4 mg/dL (8.4-10.2); CARBON DIOXIDE 25 mmol/L (22-30); CHLORIDE 99 mmol/L (98-107); CREATININE RESULT 1.08 mg/dL (0.52-1.25); GLUCOSE 219 mg/dL (75-110); POTASSIUM 4.6 mmol/L (3.6-5.0); SODIUM 133.2 mmol/L (137-145); TOTAL PROTEIN 5.9 g/dL (6.3-8.2)
[2016-12-19] MEDS ORDERED: ONDANSETRON 4 MG TAB.RAPDIS PO ONE (14:44)
[2016-12-19] MEDS ORDERED: ONDANSETRON ODT 4 MG TAB (6 TAB/DSPK) PO PRN (15:06)
--- NOTE | 2016-12-19 15:10 | ER Document Report ---
ED General - General Chief Complaint: Abdominal Pain Stated Complaint: ABDOMINAL PAIN,VOMITING,NAUSEA Time Seen by Provider: 12/19/16 12:07 Mode of Arrival: Ambulatory TRAVEL OUTSIDE OF THE [place] IN LAST 30 DAYS: No - HPI Quality of pain: Achy, Burning Severity: Moderate Associated symptoms: denies: Fever Notes: 46-year-old type I diabetic with a four-day history of nausea and vomiting as well as epigastric abdominal pain, denies fevers, denies blood in his vomit, states his glucometer has been reading "high". - Related Data Allergies/Adverse Reactions: Iodinated Contrast Media - Oral and Allergy (Severe, Verified 12/19/16 12:02) Anaphylaxis iodine Allergy (Severe, Verified 12/19/16 12:02) Anaphylaxis Penicillins Allergy (Severe, Verified 12/19/16 12:02) throat swelling Shellfish * [Shellfish] Allergy (Severe, Verified 12/19/16 12:02) Anaphylaxis Past Medical History - General Information source: Patient - Social History Smoking Status: Current Every Day Smoker Chew tobacco use (# tins/day): No Smoking Education Provided: No Frequency of alcohol use: Occasional Drug Abuse: None Family History: Reviewed & Not Pertinent, DM - Relatives have both type I and type II diabetes respectively Patient has suicidal ideation: No Patient has homicidal ideation: No - Past Medical History Cardiac Medical History: Reports: Hx Hypertension Denies: Hx Coronary Artery Disease, Hx DVT, Hx Heart Attack Pulmonary Medical History: Reports: Hx Pneumonia - YEARS AGO Denies: Hx Asthma, Hx Bronchitis, Hx COPD Neurological Medical History: Denies: Hx Cerebrovascular Accident, Hx Seizures Endocrine Medical History: Reports: 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, 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 denies: Diaphoresis, Fever, Weakness EENT: No symptoms reported Cardiovascular: No symptoms reported Gastrointestinal: See HPI, Abdominal pain, Nausea, Vomiting. denies: Diarrhea Hematologic/Lymphatic: Other - Hyperglycemia -: Yes All other systems reviewed and negative Physical Exam - Vital signs Vitals: Temp Pulse Resp BP Pulse Ox 98 F 86 18 142/78 H 99 12/19/16 11:36 12/19/16 11:36 12/19/16 11:36 12/19/16 11:36 12/19/16 11:36 Interpretation: Hypertensive - Notes Notes: GENERAL: Alert, interacts well. No acute distress. HEAD: Normocephalic, atraumatic EYES: Pupils equal, round and reactive to light, extraocular movements intact. ENT: Oral mucosa moist, tongue midline. NECK: Full range of motion, supple, trachea midline. LUNGS: Clear to auscultation bilaterally, no wheezes, rales or rhonchi, no respiratory distress. HEART: Regular rate and rhythm, no murmurs, gallops, rubs. ABDOMEN: Soft, nontender, nondistended, bowel sounds present in all 4 quadrants. EXTREMITIES: Moves all 4 extremities spontaneously, no edema, radial and dorsalis pedis pulses 2/4 bilaterally. No cyanosis. NEUROLOGICAL: Alert and oriented x3, normal speech PSYCH: Normal mood, normal affect. SKIN: Warm, Dry, normal turgor, no rashes or lesions noted. Course - Re-evaluation Re-evalutation: 12/19/16 15:10 CBC shows mild anemia with hemoglobin 12.9, sodium slightly low 133, glucose elevated 219, no anion gap, CO2 normal, no ketones in the urine. No evidence of DKA. Patient treated with a liter of normal saline and Zofran ODT. Patient feels much better, able to tolerate crackers and water, discharged home with dispense pack of Zofran ODT. - Vital Signs Vital signs: Temp Pulse Resp BP Pulse Ox 98 F 86 18 142/78 H 99 12/19/16 11:36 12/19/16 11:36 12/19/16 11:36 12/19/16 11:36 12/19/16 11:36 - Laboratory Result Diagrams: 12/19/16 13:07 12/19/16 13:07 Laboratory results interpreted by me: 12/19/16 12/19/16 12/19/16 12:15 13:07 13:07 RBC 4.26 L Hgb 12.9 L Sodium 133.2 L Glucose 219 H POC Glucose 239 H Total Protein 5.9 L Discharge - Discharge Clinical Impression: Type 1 diabetes mellitus with hyperglycemia Nausea & vomiting Qualifiers: Vomiting type: unspecified Vomiting Intractability: non-intractable Qualified Code(s): R11.2 - Nausea with vomiting, unspecified Condition: Stable Disposition: HOME, SELF-CARE Instructions: Vomiting ([facility]) Additional Instructions: Please take your insulin as directed. Please use the Zofran to stop vomiting. Please return for worsening abdominal pain, fevers, uncontrollable blood sugars. Forms: Return to Work
[2016-12-19 15:17] VITALS: BP 174/82
== END 2016-12-19 15:13 | disposition home or self-care (01) ==
LOC: ER 11:28
DX: E10.65 Type 1 diabetes mellitus with hyperglycemia (principal); R10.9 Unspecified abdominal pain; R11.2 Nausea with vomiting, unspecified; R10.13 Epigastric pain; F17.200 Nicotine dependence, unspecified, uncomplicated
CPT/HCPCS: 99284; 96360; 36415; 82962; 85025; 80053; 81001; S0119; J7030

== ENCOUNTER 2017-02-26 09:54 | Emergency (ER) | payer SELFPAY ==
--- NOTE | 2017-02-26 10:23 | ER Document Report ---
ED Medical Screen (RME) - General Chief Complaint: Flank Pain Stated Complaint: BLOOD SUGAR PROBLEMS Notes: 46-year-old male with a history of kidney stones. He presents with 5 days of constant left CVA pain. Patient states he has not had any problems with urination and has not noticed any blood in the urine. He has had no fevers. He has had some nausea. Patient has also had decreased appetite. He states that his blood sugars have been higher than normal and have been between 200- 400 for the last 3 days. Heart is regular rate and rhythm. Lungs are clear to auscultation bilaterally. Abdomen is soft nontender and nondistended. Patient has some flank tenderness to percussion that is moderate. Skin is warm and dry. Patient is cooperative and conversant. TRAVEL OUTSIDE OF THE [place] IN LAST 30 DAYS: No - Related Data Allergies/Adverse Reactions: Iodinated Contrast- Oral and IV Dye Allergy (Severe, Verified 02/26/17 10:07) Anaphylaxis iodine Allergy (Severe, Verified 02/26/17 10:07) Anaphylaxis Penicillins Allergy (Severe, Verified 02/26/17 10:07) throat swelling Shellfish * [Shellfish] Allergy (Severe, Verified 02/26/17 10:07) Anaphylaxis Past Medical History - Past Medical History Cardiac Medical History: Reports: Hx Hypertension Denies: Hx Coronary Artery Disease, Hx DVT, Hx Heart Attack Pulmonary Medical History: Reports: Hx Pneumonia - YEARS AGO Denies: Hx Asthma, Hx Bronchitis, Hx COPD Neurological Medical History: Denies: Hx Cerebrovascular Accident, Hx Seizures Endocrine Medical History: Reports: 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, 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 Renal/ Medical History: Denies: Hx Peritoneal Dialysis GI Medical History: Reports: Hx Hiatal Hernia Musculoskeltal Medical History: Reports Hx Arthritis - GENERALIZED Psychiatric Medical History: Reports: Hx Depression Past Surgical History: Reports: Hx Orthopedic Surgery - L HIP - Immunizations Hx Diphtheria, Pertussis, Tetanus Vaccination: Yes Physical Exam - Vital signs Vitals: Temp Pulse Resp BP Pulse Ox 97.8 F 78 14 141/77 H 99 02/26/17 09:59 02/26/17 09:59 02/26/17 09:59 02/26/17 09:59 02/26/17 09:59 Course - Vital Signs Vital signs: Temp Pulse Resp BP Pulse Ox 97.8 F 78 14 141/77 H 99 02/26/17 09:59 02/26/17 09:59 02/26/17 09:59 02/26/17 09:59 02/26/17 09:59
[2017-02-26] MEDS ORDERED: ONDANSETRON 4 MG TAB.RAPDIS PO ONE (10:24)
[2017-02-26] MEDS ORDERED: OXYCODONE-ACETAMINOPHEN 5-325 MG TABLET PO ONE (10:24)
[2017-02-26 10:58] LABS: ABSOLUTE BASOPHILS # (AUTO) 0.1 10^3/uL (0.0-0.2); ABSOLUTE EOSINOPHILS # (AUTO) 0.1 10^3/uL (0.0-0.6); ABSOLUTE LYMPHOCYTES (AUTO) 1.7 10^3/uL (0.5-4.7); ABSOLUTE MONOCYTES (AUTO) 0.5 10^3/uL (0.1-1.4); ABSOLUTE NEUT (AUTO) 5.6 10^3/uL (1.7-8.2); BASOPHILS % (AUTO) 0.9 % (0-2); HEMATOCRIT 37.7 % (37.9-51.0); HEMOGLOBIN 12.8 g/dL (13.5-17.0); HGB HCT DIFFERENCE 0.7; LYMPHOCYTES % (AUTO) 21.7 % (13-45); MEAN CORPUSCULAR HEMOGLOBIN 30.6 pg (27.0-33.4); MEAN CORPUSCULAR VOLUME 90 fl (80-97); MONOCYTES % (AUTO) 5.9 % (3-13); RED BLOOD COUNT 4.18 10^6/uL (4.35-5.55); RED CELL DISTRIBUTION WIDTH 13.5 % (11.5-14.0); SEGMENTED NEUTROPHILS % (AUTO) 70.5 % (42-78); WHITE BLOOD COUNT 7.9 10^3/uL (4.0-10.5)
[2017-02-26 11:00] LABS: APPEARANCE,URINE CLEAR; BILIRUBIN,URINE NEGATIVE (NEGATIVE); GLUCOSE, URINE NEGATIVE (NEGATIVE); KETONES,URINE NEGATIVE (NEGATIVE); LEUKOCYTE ESTERASE,URINE NEGATIVE (NEGATIVE); NITRITE,URINE NEGATIVE (NEGATIVE); PROTEIN,URINE NEGATIVE (NEGATIVE); URINE SPECIFIC GRAVITY 1.004; UROBILINOGEN,URINE NEGATIVE mg/dL (<2.0)
[2017-02-26] MEDS ORDERED: NORMAL SALINE 1000 ML 1,000 ML IV ONE (11:23)
--- NOTE | 2017-02-26 11:23 | ER Document Report ---
ED GI/ - General Chief Complaint: Flank Pain Stated Complaint: BLOOD SUGAR PROBLEMS Time Seen by Provider: 02/26/17 10:50 Information source: Patient Notes: Patient is a 46-year-old male who presents today with the onset 5 days ago of some nonradiating left flank "sharpness" it is been intermittent, worse when standing, better when reclined. He states nausea without vomiting, fevers, or diarrhea. He does state some dysuria. He denies any lower abdominal pain or testicular pain or swelling. Patient also states that he has been having some elevated blood sugars at home. He states he has been taking his medications appropriately. He denies any recent changes or alterations in his regimen. TRAVEL OUTSIDE OF THE [place] IN LAST 30 DAYS: No - HPI Patient complains to provider of: Flank pain Onset: Other - See above Timing/Duration: Gradual Quality of pain: Sharp Severity at maximum: Moderate Severity in ED: Moderate Pain Level: 2 Location: Other - See above Sexual history: Active Associated symptoms: Other - See above Exacerbated by: Other - See above Relieved by: Other - See above Similar symptoms previously: Yes Recently seen / treated by doctor: No - Related Data Allergies/Adverse Reactions: Iodinated Contrast- Oral and IV Dye Allergy (Severe, Verified 02/26/17 10:07) Anaphylaxis iodine Allergy (Severe, Verified 02/26/17 10:07) Anaphylaxis Penicillins Allergy (Severe, Verified 02/26/17 10:07) throat swelling Shellfish * [Shellfish] Allergy (Severe, Verified 02/26/17 10:07) Anaphylaxis Past Medical History - General Information source: Patient - Social History Smoking Status: Unknown if Ever Smoked Cigarette use (# per day): No Chew tobacco use (# tins/day): No Smoking Education Provided: No Frequency of alcohol use: None Drug Abuse: None Family History: Reviewed & Not Pertinent, DM - Relatives have both type I and type II diabetes respectively Patient has suicidal ideation: No Patient has homicidal ideation: No - Past Medical History Cardiac Medical History: Reports: Hx Hypertension Denies: Hx Coronary Artery Disease, Hx DVT, Hx Heart Attack Pulmonary Medical History: Reports: Hx Pneumonia - YEARS AGO Denies: Hx Asthma, Hx Bronchitis, Hx COPD Neurological Medical History: Denies: Hx Cerebrovascular Accident, Hx Seizures Endocrine Medical History: Reports: 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, 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 Renal/ Medical History: Denies: Hx Peritoneal Dialysis GI Medical History: Reports: Hx Hiatal Hernia Musculoskeltal Medical History: Reports Hx Arthritis - GENERALIZED Psychiatric Medical History: Reports: Hx Depression Past Surgical History: Reports: Hx Orthopedic Surgery - L HIP - Immunizations Hx Diphtheria, Pertussis, Tetanus Vaccination: Yes Hx Pneumococcal Vaccination: 06/20/12 Review of Systems - Review of Systems Constitutional: denies: Fever EENT: denies: Eye discharge, Nose discharge Respiratory: denies: Short of breath Gastrointestinal: denies: Vomiting Genitourinary: Dysuria Musculoskeletal: denies: Leg swelling Skin: Other - no hives. denies: Rash Neurological/Psychological: Other - no slurred speech -: Yes All other systems reviewed and negative Physical Exam - Vital signs Vitals: Temp Pulse Resp BP Pulse Ox 97.8 F 78 14 141/77 H 99 02/26/17 09:59 02/26/17 09:59 02/26/17 09:59 02/26/17 09:59 02/26/17 09:59 Interpretation: Normal Notes: Reviewed vital signs and nursing note as charted by RN. CONSTITUTIONAL: Alert and oriented and responds appropriately to questions. Well -appearing; well-nourished HEAD: Normocephalic; atraumatic CARD: Regular rate and rhythm; no murmurs, no clicks, no rubs, no gallops; symmetric distal pulses RESP: Normal chest excursion without splinting or tachypnea; breath sounds clear and equal bilaterally; no wheezes, no rhonchi, no rales ABD/GI: Normal bowel sounds; non-distended; soft, non-tender to deep palpation of all 4 quadrants of the abdomen GI/: Patient has no penile lesions, inguinal masses, testicular pain, or scrotal swelling or erythema BACK: The back appears normal and is non-tender to palpation along the entire midline spine with no swelling, erythema, or induration, left CVA tenderness without any obvious swelling or erythema EXT: Normal ROM in all joints; non-tender to palpation; no cyanosis, no effusions, no edema SKIN: Normal color for age and race; warm; dry; good turgor; capillary refill < 2 seconds; no acute lesions noted NEURO: Moves all extremities equally; Motor and sensory function intact PSYCH: The patient's mood and manner are appropriate. Grooming and personal hygiene are appropriate. Course - Re-evaluation Re-evalutation: 02/26/17 11:22 Given the history and physical examination we will order a renal colic CT scan, check the basic labs, provide fluids, pain, nausea medications. I do believe an acute intra-abdominal process to be unlikely. Patient does have a history of a kidney stone 1. 02/26/17 12:55 Labs as recorded. Patient's pain is improved. CT scan only shows what appears to be a small right kidney exophytic mass. Patient has no right-sided symptoms. No obvious urinary tract infection. Glucose is 63. 02/26/17 13:20 Reexamination of the patient shows no change with still no tenderness to palpation of the abdomen. Patient denies any chest pain, cough, and the patient 's vital signs shows no fever, hypoxia, or other signs of pneumonia or pulmonary embolism. I have explained to the patient and his about the need for follow-up with the primary care physician regarding the lesion to the right kidney. I have also explained that the patient needs to return immediately with any change in symptoms, worsening symptoms, change in location or quality of pain, or any other acute problems. - Vital Signs Vital signs: Temp Pulse Resp BP Pulse Ox 97.8 F 78 14 141/77 H 99 02/26/17 09:59 02/26/17 09:59 02/26/17 09:59 02/26/17 09:59 02/26/17 09:59 - Laboratory Result Diagrams: 02/26/17 10:25 02/26/17 10:25 Laboratory results interpreted by me: 02/26/17 02/26/17 10:25 10:25 RBC 4.18 L Hgb 12.8 L Hct 37.7 L Sodium 134.3 L Creatinine 1.27 H Glucose 63 L Discharge - Discharge Clinical Impression: Left flank pain, Abdominal pain, left lower quadrant, Kidney lesion, lac vieux, right Condition: Good Disposition: HOME, SELF-CARE Additional Instructions: Come back immediately with any increased pain, change in location or quality of pain, fevers, vomiting, pain with urination, or any other acute problems. Please make sure that she follow-up with your primary care physician for reevaluation and assessment and further evaluation of the right kidney lesion as we have discussed. Prescriptions: Hydrocodone/Acetaminophen [[place] 5-325 Tablet] 1 each PO Q6 PRN #12 tablet PRN Reason: For Pain
[2017-02-26 11:41] LABS: ALANINE AMINOTRANSFERASE 39 U/L (21-72); ALBUMIN 4.1 g/dL (3.5-5.0); ALKALINE PHOSPHATASE 67 U/L (38-126); ANION GAP 10 (5-19); ASPARTATE AMINO TRANSFERASE 25 U/L (17-59); BILIRUBIN,DIRECT 0.3 mg/dL (0.0-0.4); BILIRUBIN,TOTAL 0.5 mg/dL (0.2-1.3); BLOOD UREA NITROGEN 19 mg/dL (7-20); CALCIUM 9.5 mg/dL (8.4-10.2); CARBON DIOXIDE 25 mmol/L (22-30); CHLORIDE 99 mmol/L (98-107); CREATININE RESULT 1.27 mg/dL (0.52-1.25); GLUCOSE 63 mg/dL (75-110); SODIUM 134.3 mmol/L (137-145); TOTAL PROTEIN 6.6 g/dL (6.3-8.2)
--- NOTE | 2017-02-26 12:33 | RADIOLOGY REPORT (SQ) ---
EXAM DESCRIPTION: CT ABD/PELVIS NO ORAL OR IV COMPLETED DATE/TIME: 02/26/2017 11:41 am REASON FOR STUDY: left flank pain COMPARISON: None. TECHNIQUE: CT scan of the abdomen and pelvis performed without intravenous or oral contrast. Images reviewed with lung, soft tissue, and bone windows. Reconstructed coronal and sagittal MPR images revi ewed. All images stored on PACS. All CT scanners at this facility use dose modulation, iterative reconstruction, and/or weight based d osing when appropriate to reduce radiation dose to as low as reasonably achievable (ALARA). [facility]: Dose Right [facility]: CareDose [facility]: Dose Right [facility]: Teradose 4D [facility]: Smart Breadtrip RADIATION DOSE: Up-to-date CT equipment and radiation dose reduction techniques were employed. CTDIv ol: 4.8 mGy. DLP: 239 mGy-cm.mGy. LIMITATIONS: None. FINDINGS: LOWER CHEST: No significant findings. No nodules or infiltrates. NON-CONTRASTED LIVER, SPLEEN, ADRENALS: Evaluation limited by lack of IV contrast. No identified sign ificant masses. PANCREAS: No masses. No peripancreatic inflammatory changes. GALLBLADDER: No identified stones by CT criteria. No inflammatory changes to suggest cholecystitis. RIGHT KIDNEY AND URETER: There is a small exophytic mass in the right kidney measuring 1.3 cm in diam eters with CT numbers higher than would be expected for a simple cyst. This could represent a compli cated cyst or solid mass. Ultrasound may be of value for further evaluation. Assessment limited by l ack of IV contrast. No significant calcifications. No hydronephrosis or hydroureter. LEFT KIDNEY AND URETER: No suspicious masses. Assessment limited by lack of IV contrast. No signifi cant calcifications. No hydronephrosis or hydroureter. AORTA AND RETROPERITONEUM: No aneurysm. No retroperitoneal masses or adenopathy. BOWEL AND PERITONEAL CAVITY: No obvious masses or inflammatory changes. No free fluid. A moderate am ount a gas and fecal material is identified throughout the colon. APPENDIX: Not identified PELVIS, BLADDER, AND ABDOMINAL WALL:No abnormal masses. No free fluid. Bladder normal. BONES: No significant findings. OTHER: No other significant finding. IMPRESSION: Small exophytic right renal mass as noted above. Ultrasound may be of value for further evaluation. Other findings as noted above TECHNICAL DOCUMENTATION: JOB ID: [id number] Quality ID # [id number]: Final reports with documentation of one or more dose reduction techniques (e.g., Au tomated exposure control, adjustment of the mA and/or kV according to patient size, use of iterative reconstruction technique) 2010 [employer]- All Rights Reserved
[2017-02-26 13:45] VITALS: BP 146/70
== END 2017-02-26 13:52 | disposition home or self-care (01) ==
LOC: ER 09:54
DX: N28.9 Disorder of kidney and ureter, unspecified (principal); R10.32 Left lower quadrant pain; R30.0 Dysuria; R73.9 Hyperglycemia, unspecified
CPT/HCPCS: 99284; 36415; 85025; 80053; 81001; 74176; S0119; J7030

== ENCOUNTER 2017-05-21 11:01 | Emergency (ER) | payer SELFPAY ==
[2017-05-21] MEDS ORDERED: NORMAL SALINE 1000 ML 1,000 ML IV ONE (11:21)
[2017-05-21] MEDS ORDERED: ONDANSETRON HCL INJ/PF 4 MG/2 ML SDV IV ONE (11:21)
--- NOTE | 2017-05-21 11:22 | ER Document Report ---
ED Medical Screen (RME) - General Chief Complaint: Nausea/Vomiting Stated Complaint: COUGH SORE THROAT Time Seen by Provider: 05/21/17 11:21 Notes: Patient is a type I diabetic who states for 2 days he has been very weak and vomiting. He is also diffuse abdominal pain. He also states he has had cough and congestion. TRAVEL OUTSIDE OF THE [place] IN LAST 30 DAYS: No - Related Data Allergies/Adverse Reactions: Iodinated Contrast- Oral and IV Dye Allergy (Severe, Verified 05/21/17 11:06) Anaphylaxis iodine Allergy (Severe, Verified 05/21/17 11:06) Anaphylaxis Penicillins Allergy (Severe, Verified 05/21/17 11:06) throat swelling Shellfish * [Shellfish] Allergy (Severe, Verified 05/21/17 11:06) Anaphylaxis Past Medical History - Past Medical History Cardiac Medical History: Reports: Hx Hypertension Denies: Hx Coronary Artery Disease, Hx DVT, Hx Heart Attack Pulmonary Medical History: Reports: Hx Pneumonia - YEARS AGO Denies: Hx Asthma, Hx Bronchitis, Hx COPD Neurological Medical History: Denies: Hx Cerebrovascular Accident, Hx Seizures Endocrine Medical History: Reports: 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, 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 Renal/ Medical History: Denies: Hx Peritoneal Dialysis GI Medical History: Reports: Hx Hiatal Hernia Musculoskeltal Medical History: Reports Hx Arthritis - GENERALIZED Psychiatric Medical History: Reports: Hx Depression Past Surgical History: Reports: Hx Orthopedic Surgery - L HIP - Immunizations Hx Diphtheria, Pertussis, Tetanus Vaccination: Yes Physical Exam - Vital signs Vitals: Temp Pulse Resp BP Pulse Ox 98.8 F 80 16 128/69 H 99 05/21/17 11:03 05/21/17 11:03 05/21/17 11:03 05/21/17 11:03 05/21/17 11:03 Course - Vital Signs Vital signs: Temp Pulse Resp BP Pulse Ox 98.8 F 80 16 128/69 H 99 05/21/17 11:03 05/21/17 11:03 05/21/17 11:03 05/21/17 11:03 05/21/17 11:03
[2017-05-21 12:09] LABS: ABSOLUTE BASOPHILS # (AUTO) 0.1 10^3/uL (0.0-0.2); ABSOLUTE EOSINOPHILS # (AUTO) 0.1 10^3/uL (0.0-0.6); ABSOLUTE LYMPHOCYTES (AUTO) 1.8 10^3/uL (0.5-4.7); ABSOLUTE MONOCYTES (AUTO) 0.5 10^3/uL (0.1-1.4); ABSOLUTE NEUT (AUTO) 5.3 10^3/uL (1.7-8.2); BASOPHILS % (AUTO) 0.9 % (0-2); EOSINOPHILS % (AUTO) 1.7 % (0-6); HEMATOCRIT 35.5 % (37.9-51.0); HEMOGLOBIN 12.4 g/dL (13.5-17.0); HGB HCT DIFFERENCE 1.7; LYMPHOCYTES % (AUTO) 22.9 % (13-45); MEAN CORPUSCULAR HEMOGLOBIN 31.3 pg (27.0-33.4); MEAN CORPUSCULAR HGB CONC 34.9 g/dL (32.0-36.0); MEAN CORPUSCULAR VOLUME 90 fl (80-97); MONOCYTES % (AUTO) 6.4 % (3-13); RED BLOOD COUNT 3.95 10^6/uL (4.35-5.55); RED CELL DISTRIBUTION WIDTH 13.2 % (11.5-14.0); SEGMENTED NEUTROPHILS % (AUTO) 68.1 % (42-78); WHITE BLOOD COUNT 7.7 10^3/uL (4.0-10.5)
[2017-05-21 12:10] LABS: APPEARANCE,URINE CLEAR; BILIRUBIN,URINE NEGATIVE (NEGATIVE); GLUCOSE, URINE NEGATIVE (NEGATIVE); KETONES,URINE NEGATIVE (NEGATIVE); LEUKOCYTE ESTERASE,URINE NEGATIVE (NEGATIVE); NITRITE,URINE NEGATIVE (NEGATIVE); PROTEIN,URINE NEGATIVE (NEGATIVE); URINE SPECIFIC GRAVITY 1.005; UROBILINOGEN,URINE NEGATIVE mg/dL (<2.0)
[2017-05-21 12:33] LABS: ALANINE AMINOTRANSFERASE 32 U/L (21-72); ALKALINE PHOSPHATASE 60 U/L (38-126); ANION GAP 9 (5-19); ASPARTATE AMINO TRANSFERASE 26 U/L (17-59); BILIRUBIN,DIRECT 0.4 mg/dL (0.0-0.4); BILIRUBIN,TOTAL 0.5 mg/dL (0.2-1.3); BLOOD UREA NITROGEN 14 mg/dL (7-20); CALCIUM 9.3 mg/dL (8.4-10.2); CARBON DIOXIDE 25 mmol/L (22-30); CHLORIDE 105 mmol/L (98-107); CREATININE RESULT 1.08 mg/dL (0.52-1.25); GLUCOSE 70 mg/dL (75-110); LIPASE 135.8 U/L (23-300); SODIUM 139.2 mmol/L (137-145); TOTAL PROTEIN 6.1 g/dL (6.3-8.2)
[2017-05-21] MEDS ORDERED: DEXTROSE 40% GEL 15 GM TUBE ONE (13:27)
[2017-05-21] MEDS ORDERED: DEXTROSE 40% GEL 15 GM TUBE PO PRN (13:28)
--- NOTE | 2017-05-21 13:45 | RADIOLOGY REPORT (SQ) ---
EXAM DESCRIPTION: CHEST PA/LAT COMPLETED DATE/TIME: 05/21/2017 1:23 pm REASON FOR STUDY: cough/congest COMPARISON: 09/03/2016 TECHNIQUE: Frontal and lateral radiographic views of the chest acquired. NUMBER OF VIEWS: Two view. LIMITATIONS: None. FINDINGS: LUNGS AND PLEURA: No opacities, masses or pneumothorax. No pleural effusion. MEDIASTINUM AND HILAR STRUCTURES: No masses or contour abnormalities. HEART AND VASCULAR STRUCTURES: Heart normal size. No evidence for failure. BONES: No acute findings. HARDWARE: None in the chest. OTHER: No other significant finding. IMPRESSION: NO SIGNIFICANT RADIOGRAPHIC FINDING IN THE CHEST. TECHNICAL DOCUMENTATION: JOB ID: [id number] [employer]- All Rights Reserved
--- NOTE | 2017-05-21 13:59 | ER Document Report ---
ED General <ABDULKADIR JENKINS - Last Filed: 05/21/17 15:38> - General Mode of Arrival: Ambulatory Information source: Patient TRAVEL OUTSIDE OF THE [place] IN LAST 30 DAYS: No <CARISA ROSAS - Last Filed: 05/21/17 15:51> - General Chief Complaint: Nausea/Vomiting Stated Complaint: COUGH SORE THROAT Time Seen by Provider: 05/21/17 11:21 Notes: This 46-year-old male patient with type 2 insulin-dependent diabetes reports a 2 -3 day history of cough congestion chest and head congestion nonproductive cough. There is been some sore throat. He reports diffuse abdominal pain. He complains of pressure in his chest. He reports he is weak and has been vomiting and lightheaded. He states his blood sugar was reading high this morning so he took his usual dose of Lantus 24 units, and 5 units of Humalog. His Chem-12 glucose was 70 at 11:30 AM. About 2 hours later his Accu-Chek was in the low 30s. He was given oral glucose and orange juice to drink. His Accu- Chek only came up to 44. One amp of D50W was ordered, when the nurse went to give that he was eating a cheeseburger. He was still given the D50W. This was about 2:10 PM, he will have a repeat Accu-Chek in about 30 minutes. ( GREGORYABDULKADIR) Patient is a 46-year-old type 2 insulin-dependent diabetic that presents to the emergency department today with complaints of a 2-3 day history of cough, nasal congestion, and abnormal BGL readings. He reports that this morning his blood sugars were reading high so he took his usual dose of 24 units of Lantus and 5 units of Humalog. Here, his Accu-Chek ran as low as in the 30s. Patient states he did not eat breakfast this morning but he can not think of any other reasons that his BGLs are running so low now. (CARISA ROSAS) - Related Data Allergies/Adverse Reactions: Iodinated Contrast- Oral and IV Dye Allergy (Severe, Verified 05/21/17 11:06) Anaphylaxis iodine Allergy (Severe, Verified 05/21/17 11:06) Anaphylaxis Penicillins Allergy (Severe, Verified 05/21/17 11:06) throat swelling Shellfish * [Shellfish] Allergy (Severe, Verified 05/21/17 11:06) Anaphylaxis Home Medications: Current Home Medications Insulin Glargine,Hum.rec.anlog [Lantus] 24 unit SQ QAM 05/21/17 [History] Insulin Lispro [Humalog Insulin (Lispro) 100 unit/mL] 1 unit SQ PRN PRN [History] Losartan Potassium [Losartan Potassium] 100 mg PO DAILY 05/21/17 [History] Past Medical History - General Information source: Patient - Social History Smoking Status: Current Every Day Smoker Cigarette use (# per day): Yes Chew tobacco use (# tins/day): No Frequency of alcohol use: None Drug Abuse: None Lives with: Family Family History: Reviewed & Not Pertinent, DM - Relatives have both type I and type II diabetes respectively - Past Medical History Cardiac Medical History: Reports: Hx Hypertension Pulmonary Medical History: Reports: Hx Pneumonia - YEARS AGO Endocrine Medical History: Reports: 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 GI Medical History: Reports: Hx Hiatal Hernia Musculoskeltal Medical History: Reports Hx Arthritis - GENERALIZED Psychiatric Medical History: Reports: Hx Depression Past Surgical History: Reports: Hx Orthopedic Surgery - L HIP - Immunizations Hx Diphtheria, Pertussis, Tetanus Vaccination: Yes Hx Pneumococcal Vaccination: 06/20/12 <CARISA ROSAS - Last Filed: 05/21/17 15:51> Review of Systems - Review of Systems Constitutional: See HPI, Other - Low BGL EENT: See HPI, Nose congestion Cardiovascular: No symptoms reported Respiratory: See HPI, Cough Gastrointestinal: No symptoms reported Genitourinary: No symptoms reported Male Genitourinary: No symptoms reported Musculoskeletal: No symptoms reported Skin: No symptoms reported Hematologic/Lymphatic: No symptoms reported Neurological/Psychological: No symptoms reported -: Yes All other systems reviewed and negative <CARISA ROSAS - Last Filed: 05/21/17 15:51> Physical Exam <ABDULKADIR JENKINS - Last Filed: 05/21/17 15:38> <CARISA ROSAS - Last Filed: 05/21/17 15:51> - Vital signs Vitals: Temp Pulse Resp BP Pulse Ox 98.8 F 80 16 128/69 H 99 05/21/17 11:03 05/21/17 11:03 05/21/17 11:03 05/21/17 11:03 05/21/17 11:03 - Notes Notes: Physical Exam: General: Alert, slow to respond consistent with low BGL readings. HEENT: Normocephalic. Atraumatic. PERRL. Extraocular movements intact. Oropharynx clear. Retracted TMs bilaterally. Mild exhibitions curator pharynx erythema. Neck: Supple. Non-tender. Respiratory: No respiratory distress. Clear and equal breath sounds bilaterally. Dry cough. Cardiovascular: Regular rate and rhythm. Abdominal: Normal Inspection. Non-tender. No distension. Normal Bowel Sounds. Back: Non-tender. No deformity or step off. Extremities: Moves all four extremities. Upper extremities: Normal inspection. Normal ROM. Lower extremities: Normal inspection. No edema. Normal ROM. Neurological: Normal cognition. AAOx4. Normal speech. Psychological: Normal affect. Normal Mood. Skin: Warm. Dry. Normal color. (CARISA ROSAS) Course - Laboratory Result Diagrams: 05/21/17 11:30 05/21/17 11:30 - Diagnostic Test Radiology reviewed: Image reviewed, Reports reviewed - Chest x-ray does not show any acute process. <ABDULKADIR JENKINS - Last Filed: 05/21/17 15:38> - Laboratory Result Diagrams: 05/21/17 11:30 05/21/17 11:30 <CARISA ROSAS - Last Filed: 05/21/17 15:51> - Re-evaluation Re-evalutation: 05/21/17 14:56 30-40 minutes after the cheeseburger and the D50W, the patient's Accu-Chek is 239. 05/21/17 15:08 The patient's primary complaints are suggestive of a viral upper respiratory tract infection. He does report he has been vomiting for 2 days, however his urine specific gravity was 1.005 His lab work is consistent with a viral infection. 05/21/17 15:39 At this time the patient is much more alert and oriented due to his blood sugars being up in the normal range. I discussed this case with him and explained that it appears he has a viral upper respiratory tract infection. He also had quite low blood sugar that did not respond to oral glucose. I told him the history does not add up. If his sugars were over 500 at home and he took only the 24 units of Lantus and 5 units of Humalog that he reports, this would not have lowered his sugars substantially. If his Accu-Chek at home is wrong and it was actually very low possibly this would explain his sugars. A more likely explanation is he took much more insulin than he thinks he did. He is advised to go home check his sugars when he gets home that should be in the 200 or so range based on his most recent Accu-Chek here. If his sugars are lower than that, and he needs to eat again immediately. If the sugars are running over 500 then he has a machine problem. (ABDULKADIR JENKINS) - Vital Signs Vital signs: Temp Pulse Resp BP Pulse Ox 98.8 F 80 16 154/77 H 99 05/21/17 11:03 05/21/17 11:03 05/21/17 15:01 05/21/17 15:01 05/21/17 15:01 - Laboratory Laboratory results interpreted by me: 05/21/17 05/21/17 05/21/17 11:30 11:30 13:26 RBC 3.95 L Hgb 12.4 L Hct 35.5 L Glucose 70 L POC Glucose 44 L Total Protein 6.1 L 05/21/17 14:53 RBC Hgb Hct Glucose POC Glucose 239 H Total Protein Discharge <ABDULKADIR JENKINS - Last Filed: 05/21/17 15:38> <CARISA ROSAS - Last Filed: 05/21/17 15:51> - Discharge Clinical Impression: Viral upper respiratory tract infection with cough, Hypoglycemia due to insulin Condition: Stable Disposition: HOME, SELF-CARE Additional Instructions: Upper Respiratory Illness: You have a viral infection of the respiratory passages -- a "cold." This common infection causes nasal congestion, drainage, and often sore throat and cough. It is caused by a virus and is highly contagious. The disease usually lasts a week or more, though the worst symptoms are usually over in 3 or 4 days. There is no "cure" for the viral infection -- it must run its course. If there is a complication, such as bacterial infection in the nose, sinuses, middle ear, or bronchial tubes, antibiotics may be required, but antibiotics won 't affect the virus. If you smoke, you should STOP!! Drink plenty of fluids. A humidifier may help. An expectorant medication or decongestant may make you more comfortable. Use acetaminophen or ibuprofen for fever or aches. See the doctor if fever persists over two or three days, if there is any significant worsening of your symptoms, or if you simply fail to improve as expected. Hypoglycemia: You have suffered an episode of hypoglycemia (low blood sugar). Typical symptoms of hypoglycemia are shaking, sweating, headache, and confusion. When severe, unconsciousness or seizure may occur. Hypoglycemia occurs when a person taking insulin or diabetes pills has a change in the amount of blood sugar available -- due to exercise, decreased food intake, or alcohol. Should you feel symptoms of hypoglycemia again, immediately take some form of sugar such as sweetened juice. As the reaction subsides, eat a complex carbohydrate such as bread. If possible, check your blood sugar using a chemical strip. If episodes are occurring without obvious explanation, contact your physician for further evaluation. Check your blood sugar when you get home. If it runs over 500, then there is a problem with your machine. If your blood sugar is in the 200 range, then the machine is probably accurate. If your blood sugar is starting to get low again, then eat again. Check your sugars frequently throughout the day today. Try Robitussin-DM to help suppress your cough symptoms. Follow-up with your doctor if not improving. RETURN TO THE EMERGENCY ROOM IF ANY NEW OR WORSENING SYMPTOMS. Referrals: KRISTYN MOODY MD [Primary Care Provider] - Follow up as needed Scribe Attestation: 05/21/17 15:42 I personally performed the services described in the documentation, reviewed and edited the documentation which was dictated to the scribe in my presence, and it accurately records my words and actions. (ABDULKADIR JENKINS) Scribe Documentation - Scribe Written by Galdino:: Galdino Khanna, 05/21/2017 1548 acting as scribe for :: Gregory <CARISA ROSAS - Last Filed: 05/21/17 15:51>
[2017-05-21] MEDS ORDERED: DEXTROSE 50%-WATER 25 GM/50 ML DISP.SYRIN IV ONE (14:03)
[2017-05-21 16:08] VITALS: BP 148/78
== END 2017-05-21 16:08 | disposition home or self-care (01) ==
LOC: ER 11:01
DX: J06.9 Acute upper respiratory infection, unspecified (principal); B97.89 Other viral agents as the cause of diseases classified elsewhere; R05 Cough; E11.649 Type 2 diabetes mellitus with hypoglycemia without coma; R11.2 Nausea with vomiting, unspecified; J02.9 Acute pharyngitis, unspecified; R09.89 Other specified symptoms and signs involving the circulatory and respiratory systems; R09.81 Nasal congestion; Z79.4 Long term (current) use of insulin; Z79.899 Other long term (current) drug therapy
CPT/HCPCS: 99284; 96361; 96374; 96375; 36415; 82962; 83690; 85025; 80053; 81001; 71020; J3490; J2405; J7030

== ENCOUNTER → 2017-06-09 | Outpatient (CLI) | payer MEDICAID, OTHER ==
[2017-06-09 10:59] LABS: ABSOLUTE BASOPHILS # (AUTO) 0.1 10^3/uL (0.0-0.2); ABSOLUTE EOSINOPHILS # (AUTO) 0.7 10^3/uL (0.0-0.6); ABSOLUTE LYMPHOCYTES (AUTO) 1.8 10^3/uL (0.5-4.7); ABSOLUTE MONOCYTES (AUTO) 0.6 10^3/uL (0.1-1.4); ABSOLUTE NEUT (AUTO) 6.3 10^3/uL (1.7-8.2); BASOPHILS % (AUTO) 1.2 % (0-2); EOSINOPHILS % (AUTO) 7.2 % (0-6); HEMATOCRIT 36.3 % (37.9-51.0); HEMOGLOBIN 12.6 g/dL (13.5-17.0); HGB HCT DIFFERENCE 1.5; LYMPHOCYTES % (AUTO) 19.3 % (13-45); MEAN CORPUSCULAR HEMOGLOBIN 31.3 pg (27.0-33.4); MEAN CORPUSCULAR HGB CONC 34.7 g/dL (32.0-36.0); MEAN CORPUSCULAR VOLUME 90 fl (80-97); MONOCYTES % (AUTO) 6.1 % (3-13); RED BLOOD COUNT 4.02 10^6/uL (4.35-5.55); RED CELL DISTRIBUTION WIDTH 13.2 % (11.5-14.0); SEGMENTED NEUTROPHILS % (AUTO) 66.2 % (42-78); WHITE BLOOD COUNT 9.5 10^3/uL (4.0-10.5)
--- NOTE | 2017-06-09 11:04 | RADIOLOGY REPORT (SQ) ---
EXAM DESCRIPTION: CHEST PA/LATERAL COMPLETED DATE/TIME: 06/09/2017 10:14 am REASON FOR STUDY: UNSPECIFIED ACUTE LOWER RESPIRATORY INFECTION COMPARISON: 05/21/2017 EXAM PARAMETERS: NUMBER OF VIEWS: two views TECHNIQUE: Digital Frontal and Lateral radiographic views of the chest acquired. RADIATION DOSE: NA LIMITATIONS: none FINDINGS: LUNGS AND PLEURA: Linear opacity in the left base is consistent with atelectasis. Lung fi elds are otherwise clear. MEDIASTINUM AND HILAR STRUCTURES: No masses or contour abnormalities. HEART AND VASCULAR STRUCTURES: Heart normal size. No evidence for failure. BONES: No acute findings. HARDWARE: None in the chest. OTHER: No other significant finding. IMPRESSION: NO SIGNIFICANT RADIOGRAPHIC FINDING IN THE CHEST. TECHNICAL DOCUMENTATION: JOB ID: [id number] [employer]- All Rights Reserved
[2017-06-09 11:40] LABS: ANION GAP 10 (5-19); BLOOD UREA NITROGEN 19 mg/dL (7-20); CALCIUM 9.4 mg/dL (8.4-10.2); CARBON DIOXIDE 26 mmol/L (22-30); CHLORIDE 103 mmol/L (98-107); GLUCOSE 146 mg/dL (75-110); POTASSIUM 4.7 mmol/L (3.6-5.0); SODIUM 138.9 mmol/L (137-145)
== END ==
LOC: CCC 09:36
DX: J22 Unspecified acute lower respiratory infection (principal); J18.9 Pneumonia, unspecified organism; E10.8 Type 1 diabetes mellitus with unspecified complications
CPT/HCPCS: 36415; 71020; 80048; 85025

== ENCOUNTER → 2017-06-26 | Outpatient (CLI) | payer OTHER ==
[2017-06-29 17:36] LABS: M001-IGE PENICILLIUM CHRYSOGEN 0.12 kU/L (Class 0/I); M002-IGE CLADOSPORIUM HERBARUM <0.10 kU/L (Class 0); M003-IGE ASPERGILLUS FUMIGATUS 0.12 kU/L (Class 0/I); M004-IGE MUCOR RACEMOSUS <0.10 kU/L (Class 0); M005-IGE CANDIDA ALBICANS 0.18 kU/L (Class 0/I); M006-IGE ALTERNARIA ALTERNATA 0.27 kU/L (Class 0/I); M012-IGE AUREOBASIDI PULLULANS <0.10 kU/L (Class 0); M013-IGE PHOMA BETAE 0.29 kU/L (Class 0/I); M014-IGE EPICOCCUM PURPURASCEN 0.55 kU/L (Class I)
== END ==
LOC: CCC 15:16
DX: J45.909 Unspecified asthma, uncomplicated (principal)
CPT/HCPCS: 36415; 86003; 87070; 87205; 89190

== ENCOUNTER 2018-01-02 16:44 | Emergency (ER) | payer MEDICAID, OTHER ==
[2018-01-02] MEDS ORDERED: ONDANSETRON HCL INJ/PF 4 MG/2 ML SDV IV ONE (17:41)
[2018-01-02] MEDS ORDERED: NORMAL SALINE 1000 ML 1,000 ML IV ONE (17:41)
--- NOTE | 2018-01-02 17:41 | ER Document Report ---
ED General - General Chief Complaint: Abdominal Pain Stated Complaint: COUGHING NAUSEA Time Seen by Provider: 01/02/18 17:36 Mode of Arrival: Ambulatory Information source: Patient Notes: 47-year-old male type I diabetic who has an insulin pump of his right upper extremity presents with complaints of high blood sugar patient denies any fevers or chills admits to nausea vomiting admits sinus pressure headache all symptoms have been ongoing now for approximately one half weeks TRAVEL OUTSIDE OF THE [place] IN LAST 30 DAYS: No - HPI Onset: Last week Onset/Duration: Persistent Quality of pain: Achy Severity: Mild Pain Level: 1 Associated symptoms: Nausea, Vomiting, Sinus pain/drainage, Other Exacerbated by: Denies Relieved by: Denies Similar symptoms previously: No Recently seen / treated by doctor: No - Related Data Allergies/Adverse Reactions: Iodinated Contrast- Oral and IV Dye Allergy (Severe, Verified 01/02/18 16:46) Anaphylaxis iodine Allergy (Severe, Verified 01/02/18 16:46) Anaphylaxis Penicillins Allergy (Severe, Verified 01/02/18 16:46) throat swelling Shellfish * [Shellfish] Allergy (Severe, Verified 01/02/18 16:46) Anaphylaxis Past Medical History - Social History Smoking Status: Former Smoker Cigarette use (# per day): No Chew tobacco use (# tins/day): No Smoking Education Provided: No Frequency of alcohol use: None Drug Abuse: None Family History: Reviewed & Not Pertinent, DM - Relatives have both type I and type II diabetes respectively Patient has suicidal ideation: No Patient has homicidal ideation: No - Past Medical History Cardiac Medical History: Reports: Hx Hypertension Denies: Hx Coronary Artery Disease, Hx DVT, Hx Heart Attack Pulmonary Medical History: Reports: Hx Pneumonia - YEARS AGO Denies: Hx Asthma, Hx Bronchitis, Hx COPD Neurological Medical History: Denies: Hx Cerebrovascular Accident, Hx Seizures Endocrine Medical History: Reports: 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, 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 Renal/ Medical History: Denies: Hx Peritoneal Dialysis GI Medical History: Reports: Hx Hiatal Hernia Musculoskeltal Medical History: Reports Hx Arthritis - GENERALIZED Psychiatric Medical History: Reports: Hx Depression Past Surgical History: Reports: Hx Orthopedic Surgery - L HIP - Immunizations Hx Diphtheria, Pertussis, Tetanus Vaccination: Yes Hx Pneumococcal Vaccination: 11/10/12 Review of Systems - Review of Systems Notes: REVIEW OF SYSTEMS: CONSTITUTIONAL : Denies fever, chills, or sweats. Denies recent illness. EENT: Admits sinus pressure drainage CARDIOVASCULAR: Denies chest pain. Denies palpitations or racing or irregular heart beat. Denies ankle edema. RESPIRATORY: Denies cough, cold, or chest congestion. Denies shortness of breath, difficulty breathing, or wheezing. GASTROINTESTINAL: Admits to nausea vomiting GENITOURINARY: Denies difficulty urinating, painful urination, burning, frequency, blood in urine, or discharge. MUSCULOSKELETAL: Denies back or neck pain or stiffness. Denies joint pain or swelling. SKIN: Denies rash, lesions or sores. HEMATOLOGIC : Denies easy bruising or bleeding. LYMPHATIC: Denies swollen, enlarged glands. NEUROLOGICAL: Denies confusion or altered mental status. Denies passing out or loss of consciousness. Denies dizziness or lightheadedness. Denies headache. Denies weakness or paralysis or loss of use of either side. Denies problems with gait or speech. Denies sensory loss, numbness, or tingling. Denies seizures. PSYCHIATRIC: Denies anxiety or stress. Denies depression, suicidal ideation, or homicidal ideation. ALL OTHER SYSTEMS REVIEWED AND NEGATIVE. Dictation was performed using [employer] voice recognition software PHYSICAL EXAMINATION: GENERAL: Well-appearing, well-nourished and in no acute distress. HEAD: Atraumatic, normocephalic. EYES: Pupils equal round and reactive to light, extraocular movements intact, sclera anicteric, conjunctiva are normal. ENT: Nares patent, oropharynx clear without exudates. Moist mucous membranes. Sinus tenderness NECK: Normal range of motion, supple without lymphadenopathy LUNGS: Breath sounds clear to auscultation bilaterally and equal. No wheezes rales or rhonchi. HEART: Regular rate and rhythm without murmurs ABDOMEN: Soft, nontender, nondistended abdomen. No guarding, no rebound. No masses appreciated. Musculoskeletal: Normal range of motion, no pitting or edema. No cyanosis. NEUROLOGICAL: Cranial nerves grossly intact. Normal speech, normal gait. Normal sensory, motor exams PSYCH: Normal mood, normal affect. SKIN: Warm, Dry, normal turgor, no rashes or lesions noted. Physical Exam - Vital signs Vitals: Temp Pulse Resp BP Pulse Ox 97.8 F 70 14 146/73 H 99 01/02/18 16:48 01/02/18 16:48 01/02/18 16:48 01/02/18 16:48 01/02/18 16:48 Course - Re-evaluation Re-evalutation: 01/02/18 17:43 Lab work pending very unlikely that the patient is in DKA as he states his last blood sugar was 126 01/02/18 20:26 Patient's workup was quite benign, overall he looks quite well, he requests his IV to be taken out and notes he feels much better. I will discharge him home with nausea control and treatment for his sinusitis After performing a Medical Screening Examination, I estimate there is LOW risk for ACUTE APPENDICITIS, BOWEL OBSTRUCTION, ACUTE CHOLECYSTITIS, PERFORATED DIVERTICULITIS, INCARCERATED HERNIA, PANCREATITIS, TESTICULAR TORSION or PERFORATED ULCER, thus I consider the discharge disposition reasonable. Also, there is no evidence or peritonitis, sepsis, or toxicity. I have reevaluated this patient multiple times and no significant life threatening changes are noted. The patient and I have discussed the diagnosis and risks, and we agree with discharging home with close follow-up with the understanding that symptoms and presentations can change. We also discussed returning to the Emergency Department immediately if new or worsening symptoms occur. We have discussed the symptoms which are most concerning (e.g., bloody stool, fever, changing or worsening pain, intractable vomiting - standard verbal up date) that necessitate immediate return. - Vital Signs Vital signs: Temp Pulse Resp BP Pulse Ox 97.5 F 68 18 144/76 H 100 01/02/18 19:25 01/02/18 19:25 01/02/18 19:25 01/02/18 19:25 01/02/18 19:25 - Laboratory Result Diagrams: 01/02/18 18:30 01/02/18 18:30 Laboratory results interpreted by me: 01/02/18 01/02/18 18:30 18:30 RBC 4.18 L Hgb 13.0 L Hct 37.2 L Sodium 133.0 L Discharge - Discharge Clinical Impression: Sinusitis Qualifiers: Sinusitis location: frontal Chronicity: acute Recurrence: not specified as recurrent Qualified Code(s): J01.10 - Acute frontal sinusitis, unspecified Nausea & vomiting Qualifiers: Vomiting type: unspecified Vomiting Intractability: non-intractable Qualified Code(s): R11.2 - Nausea with vomiting, unspecified Condition: Stable Disposition: HOME, SELF-CARE Instructions: Vomiting ([facility]) Prescriptions: Azithromycin 250 mg PO ASDIR PRN #6 tablet PRN Reason: Metoclopramide HCl [Reglan 10 mg Tablet] 1 - 2 tab PO Q6 #25 tablet Referrals: MICHELLE SZYMANSKI MD [Primary Care Provider] - Follow up in 3-5 days
[2018-01-02] MEDS ORDERED: METOCLOPRAMIDE HCL INJ/PF 10 MG/2 ML SDV IV ONE (18:31)
[2018-01-02 18:44] LABS: ABSOLUTE BASOPHILS # (AUTO) 0.1 10^3/uL (0.0-0.2); ABSOLUTE EOSINOPHILS # (AUTO) 0.1 10^3/uL (0.0-0.6); ABSOLUTE MONOCYTES (AUTO) 0.4 10^3/uL (0.1-1.4); ABSOLUTE NEUT (AUTO) 4.2 10^3/uL (1.7-8.2); BASOPHILS % (AUTO) 1.3 % (0-2); EOSINOPHILS % (AUTO) 1.5 % (0-6); HEMATOCRIT 37.2 % (37.9-51.0); LYMPHOCYTES % (AUTO) 29.4 % (13-45); MEAN CORPUSCULAR HEMOGLOBIN 31.1 pg (27.0-33.4); MEAN CORPUSCULAR HGB CONC 34.9 g/dL (32.0-36.0); MEAN CORPUSCULAR VOLUME 89 fl (80-97); MONOCYTES % (AUTO) 5.4 % (3-13); PLATELET COUNT 262 10^3/uL (150-450); RED BLOOD COUNT 4.18 10^6/uL (4.35-5.55); RED CELL DISTRIBUTION WIDTH 13.2 % (11.5-14.0); SEGMENTED NEUTROPHILS % (AUTO) 62.4 % (42-78); TOTAL CELLS COUNTED % (AUTO) 100 %; VENOUS BLOOD BASE EXCESS -0.6 mmol/L; VENOUS BLOOD HCO3 24.9 mmol/L (20-32); VENOUS BLOOD PCO2 44.4 mmHg (35-63); VENOUS BLOOD PH 7.37 (7.30-7.42); WHITE BLOOD COUNT 6.8 10^3/uL (4.0-10.5)
[2018-01-02 18:58] LABS: ALANINE AMINOTRANSFERASE 25 U/L (21-72); ALBUMIN 3.9 g/dL (3.5-5.0); ALKALINE PHOSPHATASE 60 U/L (38-126); ANION GAP 8 (5-19); ASPARTATE AMINO TRANSFERASE 19 U/L (17-59); BILIRUBIN,DIRECT 0.2 mg/dL (0.0-0.4); BILIRUBIN,TOTAL 0.5 mg/dL (0.2-1.3); BLOOD UREA NITROGEN 10 mg/dL (7-20); CALCIUM 9.4 mg/dL (8.4-10.2); CARBON DIOXIDE 27 mmol/L (22-30); CHLORIDE 98 mmol/L (98-107); GLUCOSE 98 mg/dL (75-110); POTASSIUM 4.1 mmol/L (3.6-5.0); TOTAL PROTEIN 6.3 g/dL (6.3-8.2)
[2018-01-02 19:12] LABS: APPEARANCE,URINE CLEAR; BILIRUBIN,URINE NEGATIVE (NEGATIVE); COLOR,URINE STRAW; GLUCOSE, URINE NEGATIVE (NEGATIVE); KETONES,URINE NEGATIVE (NEGATIVE); LEUKOCYTE ESTERASE,URINE NEGATIVE (NEGATIVE); NITRITE,URINE NEGATIVE (NEGATIVE); PROTEIN,URINE NEGATIVE (NEGATIVE); URINE SPECIFIC GRAVITY 1.003; UROBILINOGEN,URINE NEGATIVE mg/dL (<2.0)
[2018-01-02 19:26] VITALS: BP 144/76
== END 2018-01-02 19:26 | disposition home or self-care (01) ==
LOC: ER 16:44
DX: J01.10 Acute frontal sinusitis, unspecified (principal); R11.2 Nausea with vomiting, unspecified; R51 Headache; R05 Cough; E10.9 Type 1 diabetes mellitus without complications; I10 Essential (primary) hypertension; Z79.4 Long term (current) use of insulin; Z88.6 Allergy status to analgesic agent; Z91.013 Allergy to seafood
CPT/HCPCS: 99284; 96361; 96374; 36415; 85025; 80053; 81001; 82803; J2765; J7030

== ENCOUNTER 2018-03-07 15:05 | Emergency (ER) | payer MEDICAID ==
[2018-03-07] MEDS ORDERED: IPRATROPIUM/ALBUTEROL 0.5-2.5 MG/3 ML AMPUL NEB ONE ×2 (15:54→15:59)
--- NOTE | 2018-03-07 15:56 | ER Document Report ---
ED Medical Screen (RME) - General Chief Complaint: Breathing Difficulty Stated Complaint: CONGESTION Time Seen by Provider: 03/07/18 15:54 Mode of Arrival: Ambulatory Information source: Patient Notes: This is a 47-year-old man with a history of type 1 diabetes, hypertension and COPD who presents to the emergency room with shortness of breath, wheezing, left chest wall pain. Patient denies fever. He denies productive sputum. He says his appetite is decreased but there is been no nausea or vomiting. There is diffuse wheezes on exam TRAVEL OUTSIDE OF THE [place] IN LAST 30 DAYS: No - Related Data Allergies/Adverse Reactions: Iodinated Contrast- Oral and IV Dye Allergy (Severe, Verified 03/07/18 15:06) Anaphylaxis iodine Allergy (Severe, Verified 03/07/18 15:06) Anaphylaxis Penicillins Allergy (Severe, Verified 03/07/18 15:06) throat swelling Shellfish * [Shellfish] Allergy (Severe, Verified 03/07/18 15:06) Anaphylaxis Past Medical History - Social History Chew tobacco use (# tins/day): No Frequency of alcohol use: Rare Drug Abuse: None - Past Medical History Cardiac Medical History: Reports: Hx Hypertension Denies: Hx Coronary Artery Disease, Hx DVT, Hx Heart Attack Pulmonary Medical History: Reports: Hx Pneumonia - YEARS AGO Denies: Hx Asthma, Hx Bronchitis, Hx COPD Neurological Medical History: Denies: Hx Cerebrovascular Accident, Hx Seizures Endocrine Medical History: Reports: 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, 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 Renal/ Medical History: Denies: Hx Peritoneal Dialysis GI Medical History: Reports: Hx Hiatal Hernia Musculoskeltal Medical History: Reports Hx Arthritis - GENERALIZED Psychiatric Medical History: Reports: Hx Depression Past Surgical History: Reports: Hx Orthopedic Surgery - L HIP - Immunizations Hx Diphtheria, Pertussis, Tetanus Vaccination: Yes Physical Exam - Vital signs Vitals: Temp Pulse Resp BP Pulse Ox 97.6 F 96 28 H 126/63 H 99 03/07/18 15:10 03/07/18 15:10 03/07/18 15:10 03/07/18 15:10 03/07/18 15:10 Course - Vital Signs Vital signs: Temp Pulse Resp BP Pulse Ox 97.6 F 96 28 H 126/63 H 99 03/07/18 15:10 03/07/18 15:10 03/07/18 15:10 03/07/18 15:10 03/07/18 15:10 Doctor's Discharge - Discharge Referrals: MICHELLE SZYMANSKI MD [Primary Care Provider] - Follow up as needed
[2018-03-07 16:33] LABS: ABSOLUTE BASOPHILS # (AUTO) 0.1 10^3/uL (0.0-0.2); ABSOLUTE EOSINOPHILS # (AUTO) 0.1 10^3/uL (0.0-0.6); ABSOLUTE LYMPHOCYTES (AUTO) 1.4 10^3/uL (0.5-4.7); ABSOLUTE MONOCYTES (AUTO) 0.7 10^3/uL (0.1-1.4); ABSOLUTE NEUT (AUTO) 8.1 10^3/uL (1.7-8.2); BASOPHILS % (AUTO) 0.7 % (0-2); EOSINOPHILS % (AUTO) 1.3 % (0-6); HEMATOCRIT 39.1 % (37.9-51.0); HEMOGLOBIN 13.6 g/dL (13.5-17.0); LYMPHOCYTES % (AUTO) 13.5 % (13-45); MEAN CORPUSCULAR HEMOGLOBIN 31.1 pg (27.0-33.4); MEAN CORPUSCULAR HGB CONC 34.8 g/dL (32.0-36.0); MEAN CORPUSCULAR VOLUME 89 fl (80-97); MONOCYTES % (AUTO) 6.9 % (3-13); PLATELET COUNT 243 10^3/uL (150-450); RED BLOOD COUNT 4.38 10^6/uL (4.35-5.55); RED CELL DISTRIBUTION WIDTH 13.7 % (11.5-14.0); SEGMENTED NEUTROPHILS % (AUTO) 77.6 % (42-78); TOTAL CELLS COUNTED % (AUTO) 100 %; WHITE BLOOD COUNT 10.5 10^3/uL (4.0-10.5)
[2018-03-07 16:39] LABS: ALANINE AMINOTRANSFERASE 39 U/L (21-72); ALBUMIN 3.8 g/dL (3.5-5.0); ALKALINE PHOSPHATASE 73 U/L (38-126); ANION GAP 9 (5-19); ASPARTATE AMINO TRANSFERASE 26 U/L (17-59); BILIRUBIN,DIRECT 0.4 mg/dL (0.0-0.4); BILIRUBIN,TOTAL 0.6 mg/dL (0.2-1.3); BLOOD UREA NITROGEN 18 mg/dL (7-20); CALCIUM 9.3 mg/dL (8.4-10.2); CARBON DIOXIDE 24 mmol/L (22-30); CHLORIDE 103 mmol/L (98-107); GLUCOSE 243 mg/dL (75-110); POTASSIUM 4.8 mmol/L (3.6-5.0); SODIUM 136.3 mmol/L (137-145); TOTAL PROTEIN 6.3 g/dL (6.3-8.2)
--- NOTE | 2018-03-07 17:00 | RADIOLOGY REPORT (SQ) ---
EXAM DESCRIPTION: CHEST 2 VIEWS COMPLETED DATE/TIME: 03/07/2018 4:52 pm REASON FOR STUDY: sob, wheezing COMPARISON: 05/21/2017 EXAM PARAMETERS: NUMBER OF VIEWS: two views TECHNIQUE: Digital Frontal and Lateral radiographic views of the chest acquired. RADIATION DOSE: NA LIMITATIONS: none FINDINGS: LUNGS AND PLEURA: No opacities, masses or pneumothorax. No pleural effusion. MEDIASTINUM AND HILAR STRUCTURES: No masses or contour abnormalities. HEART AND VASCULAR STRUCTURES: Heart normal size. No evidence for failure. BONES: No acute findings. HARDWARE: None in the chest. OTHER: No other significant finding. IMPRESSION: NO ACUTE RADIOGRAPHIC FINDING IN THE CHEST. TECHNICAL DOCUMENTATION: JOB ID: [id number] [employer]- All Rights Reserved Reading location - IP/workstation name: [email or web address]
--- NOTE | 2018-03-07 17:08 | ER Document Report ---
ED General - General Chief Complaint: Breathing Difficulty Stated Complaint: CONGESTION Time Seen by Provider: 03/07/18 15:54 Mode of Arrival: Ambulatory Information source: Patient Notes: 47-year-old male history of COPD presents with complaints of COPD exacerbation. Patient noted to be wheezing denies any fevers or chills has never been intubated, last time he had steroids was over a year ago patient is a diabetic Admits to productive whitish yellowish cough TRAVEL OUTSIDE OF THE [place] IN LAST 30 DAYS: No - HPI Onset: Last week Onset/Duration: Persistent Quality of pain: No pain Severity: Mild Pain Level: Denies Associated symptoms: Productive cough, Shortness of breath Exacerbated by: Walking, Coughing Relieved by: Denies Similar symptoms previously: Yes Recently seen / treated by doctor: Yes - Related Data Allergies/Adverse Reactions: Iodinated Contrast- Oral and IV Dye Allergy (Severe, Verified 03/07/18 15:06) Anaphylaxis iodine Allergy (Severe, Verified 03/07/18 15:06) Anaphylaxis Penicillins Allergy (Severe, Verified 03/07/18 15:06) throat swelling Shellfish * [Shellfish] Allergy (Severe, Verified 03/07/18 15:06) Anaphylaxis Past Medical History - General Information source: Patient - Social History Smoking Status: Former Smoker Cigarette use (# per day): No Chew tobacco use (# tins/day): No Smoking Education Provided: No Frequency of alcohol use: Rare Drug Abuse: None Family History: Reviewed & Not Pertinent, DM - Relatives have both type I and type II diabetes respectively Patient has suicidal ideation: No Patient has homicidal ideation: No - Past Medical History Cardiac Medical History: Reports: Hx Hypertension Denies: Hx Coronary Artery Disease, Hx DVT, Hx Heart Attack Pulmonary Medical History: Reports: Hx Pneumonia - YEARS AGO Denies: Hx Asthma, Hx Bronchitis, Hx COPD Neurological Medical History: Denies: Hx Cerebrovascular Accident, Hx Seizures Endocrine Medical History: Reports: 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, 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 Denies recent illness. EENT: Denies eye, ear, throat, or mouth pain or symptoms. Denies nasal or sinus congestion or discharge. Denies throat, tongue, or mouth swelling or difficulty swallowing. CARDIOVASCULAR: Denies chest pain. Denies palpitations or racing or irregular heart beat. Denies ankle edema. RESPIRATORY: Admits shortness of breath productive cough GASTROINTESTINAL: Denies abdominal pain or distention. Denies nausea, vomiting , or diarrhea. Denies blood in vomitus, stools, or per rectum. Denies black, tarry stools. Denies constipation. GENITOURINARY: Denies difficulty urinating, painful urination, burning, frequency, blood in urine, or discharge. MUSCULOSKELETAL: Denies back or neck pain or stiffness. Denies joint pain or swelling. SKIN: Denies rash, lesions or sores. HEMATOLOGIC : Denies easy bruising or bleeding. LYMPHATIC: Denies swollen, enlarged glands. NEUROLOGICAL: Denies confusion or altered mental status. Denies passing out or loss of consciousness. Denies dizziness or lightheadedness. Denies headache. Denies weakness or paralysis or loss of use of either side. Denies problems with gait or speech. Denies sensory loss, numbness, or tingling. Denies seizures. PSYCHIATRIC: Denies anxiety or stress. Denies depression, suicidal ideation, or homicidal ideation. ALL OTHER SYSTEMS REVIEWED AND NEGATIVE. Dictation was performed using [employer] voice recognition software PHYSICAL EXAMINATION: GENERAL: Well-appearing, well-nourished and in no acute distress. HEAD: Atraumatic, normocephalic. EYES: Pupils equal round and reactive to light, extraocular movements intact, sclera anicteric, conjunctiva are normal. ENT: Nares patent, oropharynx clear without exudates. Moist mucous membranes. NECK: Normal range of motion, supple without lymphadenopathy LUNGS: Admits to wheezing shortness breath HEART: Regular rate and rhythm without murmurs ABDOMEN: Soft, nontender, nondistended abdomen. No guarding, no rebound. No masses appreciated. Musculoskeletal: Normal range of motion, no pitting or edema. No cyanosis. NEUROLOGICAL: Cranial nerves grossly intact. Normal speech, normal gait. Normal sensory, motor exams PSYCH: Normal mood, normal affect. SKIN: Warm, Dry, normal turgor, no rashes or lesions noted. Physical Exam - Vital signs Vitals: Temp Pulse Resp BP Pulse Ox 97.6 F 96 28 H 126/63 H 99 03/07/18 15:10 03/07/18 15:10 03/07/18 15:10 03/07/18 15:10 03/07/18 15:10 Course - Re-evaluation Re-evalutation: 03/07/18 22:56 Patient's presentation is quite benign, he is satting 99-100% on room air breathing treatments, he states he feels much better, we discussed the use of steroids in the diabetic, we will go with a very low dose not to worsen his diabetes After performing a Medical Screening Examination, I estimate there is LOW risk for ACUTE CORONARY SYNDROME, PULMONARY EMBOLI, RESPIRATORY FAILURE, SEPSIS OR MENINGITIS, thus I consider the discharge disposition reasonable. I have reevaluated this patient multiple times and no significant life threatening changes are noted. The patient and I have discussed the diagnosis and risks, and we agree with discharging home with close follow-up. We also discussed returning to the Emergency Department immediately if new or worsening symptoms occur. We have discussed the symptoms which are most concerning (e.g., changing or worsening pain, trouble swallowing or breathing, neck stiffness, fever) that necessitate immediate return. 03/07/18 23:02 - Vital Signs Vital signs: Temp Pulse Resp BP Pulse Ox 98.1 F 96 18 159/83 H 100 03/07/18 17:17 03/07/18 15:10 03/07/18 17:17 03/07/18 17:17 03/07/18 17:17 - Laboratory Result Diagrams: 03/07/18 16:05 03/07/18 16:05 Laboratory results interpreted by me: 03/07/18 16:05 Sodium 136.3 L Glucose 243 H - Diagnostic Test Radiology reviewed: Image reviewed - 2 view chest x-ray reviewed by myself notes no acute abnormality, Reports reviewed Discharge - Discharge Clinical Impression: COPD (chronic obstructive pulmonary disease) Qualifiers: COPD type: chronic bronchitis Chronic bronchitis type: unspecified Qualified Code(s): J42 - Unspecified chronic bronchitis Condition: Stable Disposition: HOME, SELF-CARE Instructions: Chronic Obstructive Lung Disease ([facility]) Prescriptions: Albuterol Sulfate [Albuterol Sulfate 2.5mg/3 mL] 2.5 mg IH Q4 #30 vial.neb Prednisone 20 mg PO DAILY 5 Days tablet Forms: Return to Work Referrals: MICHELLE SZYMANSKI MD [Primary Care Provider] - Follow up tomorrow
[2018-03-07 17:22] VITALS: BP 159/83
== END 2018-03-07 17:25 | disposition home or self-care (01) ==
LOC: ER 15:05
DX: J44.9 Chronic obstructive pulmonary disease, unspecified (principal); R05 Cough; R06.02 Shortness of breath; I10 Essential (primary) hypertension; E11.40 Type 2 diabetes mellitus with diabetic neuropathy, unspecified; Z87.01 Personal history of pneumonia (recurrent); Z88.0 Allergy status to penicillin; Z87.892 Personal history of anaphylaxis; Z91.041 Radiographic dye allergy status; Z91.013 Allergy to seafood; Z87.891 Personal history of nicotine dependence
CPT/HCPCS: 94640 ×2; 99285; 36415; 83735; 85025; 80053; 71046; J7620

== ENCOUNTER 2018-11-18 19:30 | Emergency (ER) | payer MEDICAID ==
[2018-11-18] MEDS ORDERED: ASPIRIN 81 MG TABLET, CHEWABLE PO ONE (20:06)
--- NOTE | 2018-11-18 20:15 | ER Document Report ---
ED Cardiac - General Chief Complaint: Chest Pain > 30 Stated Complaint: DIFFICULTY BREATHING,CHEST PAIN Time Seen by Provider: 11/18/18 20:14 Primary Care Provider: MICHELLE SZYMANSKI MD [Primary Care Provider] - Follow up as needed Mode of Arrival: Ambulatory Information source: Patient, Relative Notes: HISTORY OF PRESENT ILLNESS: Patient is a 48-year-old male with a past medical history of type 1 diabetes with insulin pump, hypertension, COPD, and chronic pain syndrome who presents with 3 to 4 days of worsening cough that is now productive and associated with chest pain/tightness that started today. Patient has had decreasing appetite but reports that his blood sugars have been running "on the low side," denies any shortness of breath until today. Of note, the patient had a blood glucose of 38 upon arrival. Location: Chest Onset: 3 days ago Alleviation: Home breathing treatments without improvement Provocation: Unknown Quality: Tightness, productive cough Radiation: None Severity: Moderate to severe Timing: Constant History of CAD: None Associated symptoms: Denies fevers or chills, no swelling of the extremities, no known sick contacts REVIEW OF SYSTEMS: CONSTITUTIONAL : Denies fever or chills, no sweats. Denies recent illness. EENT: Denies eye, ear, throat, or mouth pain or symptoms. Denies nasal or sinus congestion. CARDIOVASCULAR: Positive for chest pain. Denies swelling of the legs. RESPIRATORY: Positive for productive cough and chest congestion. Positive for chest tightness and shortness of breath. GASTROINTESTINAL: Denies abdominal pain. Denies nausea, vomiting, or diarrhea. Denies constipation. GENITOURINARY: Denies difficulty urinating, painful urination, burning, frequency, or blood in urine. MUSCULOSKELETAL: Denies neck or back pain or joint pain or swelling. SKIN: Denies rash or skin lesions. HEMATOLOGIC : Denies easy bruising or bleeding. LYMPHATIC: Denies swollen, enlarged glands. NEUROLOGICAL: Denies altered mental status or loss of consciousness. Denies headache. Denies weakness or paralysis or loss of use of either side. Denies problems with gait or speech. Denies sensory or motor loss. PSYCHIATRIC: Denies anxiety or stress or depression. All other systems reviewed and negative. PHYSICAL EXAMINATION: GENERAL: Tired-appearing, well-nourished and in moderate acute distress. HEAD: Atraumatic, normocephalic. No scalp deformity, depression, or crepitance. EYES: Pupils are 3 mm and equal/round/reactive to light, extraocular movements intact, sclera anicteric, conjunctiva are normal. ENT: Nares patent bilaterally, oropharynx. Moist mucous membranes. No tonsil hypertrophy. NECK: Normal range of motion, supple without lymphadenopathy. LUNGS: Slight tachypnea and increased work of breathing with use of accessory muscles. Breath sounds present bilaterally with moderate to severe expiratory wheezes and occasional rhonchi. No crackles.. HEART: Regular rate and rhythm without murmurs, rubs, or gallops. 2+ peripheral pulses. Normal capillary refill. ABDOMEN: Soft, nontender, nondistended. Normoactive bowel sounds. No guarding, no rebound. No masses appreciated. BACK: Normal contour, no midline tenderness. Rectal exam deferred. GENITAL/PELVIC: Deferred. EXTREMITIES: Normal range of motion, no pitting or edema. No cyanosis. NEUROLOGICAL: No focal neurological deficits. Moves all extremities spontaneously and on command. PSYCH: Normal mood, normal affect. No suicidal thoughts/ideations. No homicidal thoughts/ideations. No hallucinations. SKIN: Warm, dry, normal turgor, no rashes or lesions noted. ASSESSMENT AND PLAN: This patient is a 48-year-old male who presents with chest pain and productive cough with shortness of breath that could be COPD exacerbation versus acute [place] versus pulmonary edema versus heart failure versus acute bronchitis versus as thma exacerbation. 1. Will obtain labs, urine, cardiac enzymes, chest x-ray, give IV Solu-Medrol, a nd placed on BiPAP with DuoNeb breathing treatments. 2. Will give both oral glucose as well as IV dextrose 50%. TRAVEL OUTSIDE OF THE [place] IN LAST 30 DAYS: No - Related Data Allergies/Adverse Reactions: Iodinated Contrast- Oral and IV Dye Allergy (Severe, Verified 11/18/18 19:33) Anaphylaxis iodine Allergy (Severe, Verified 11/18/18 19:33) Anaphylaxis Penicillins Allergy (Severe, Verified 11/18/18 19:33) throat swelling Shellfish * [Shellfish] Allergy (Severe, Verified 11/18/18 19:33) Anaphylaxis Past Medical History - General Information source: Patient, Relative - Social History Smoking Status: Former Smoker Chew tobacco use (# tins/day): No Frequency of alcohol use: None Drug Abuse: None Lives with: Family Family History: Reviewed & Not Pertinent, DM - Relatives have both type I and type II diabetes respectively - Past Medical History Cardiac Medical History: Reports: Hx Hypertension Denies: Hx Coronary Artery Disease, Hx DVT, Hx Heart Attack Pulmonary Medical History: Reports: Hx Pneumonia - YEARS AGO Denies: Hx Asthma, Hx Bronchitis, Hx COPD EENT Medical History: Reports: None Neurological Medical History: Reports: None. 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 Denies: Hx Peritoneal Dialysis Malignancy Medical History: Reports None GI Medical History: Reports: Hx Hiatal Hernia Musculoskeletal Medical History: Reports Hx Arthritis - GENERALIZED Skin Medical History: Reports None Psychiatric Medical History: Reports: Hx Depression Traumatic Medical History: Reports: None Infectious Medical History: Reports: None Past Surgical History: Reports: Hx Orthopedic Surgery - L HIP - Immunizations Hx Diphtheria, Pertussis, Tetanus Vaccination: Yes Hx Pneumococcal Vaccination: 06/20/12 Physical Exam - Vital signs Vitals: Temp Pulse Resp BP Pulse Ox 97.6 F 66 16 156/72 H 99 11/18/18 19:50 11/18/18 19:50 11/18/18 19:50 11/18/18 19:50 11/18/18 19:50 Course - Re-evaluation Re-evalutation: 11/19/18 00:18 The cardiac panel are normal, chest X-ray is normal. Patient is much improved after treatment. He will be discharged home with return precautions and follow- up. Patient voices both understanding and agreeing with plan. - Vital Signs Vital signs: Temp Pulse Resp BP Pulse Ox 97.6 F 66 25 H 126/65 H 96 11/18/18 19:50 11/18/18 19:50 11/18/18 23:01 11/18/18 23:00 11/18/18 23:01 - Laboratory Result Diagrams: 11/18/18 20:50 11/18/18 20:50 Laboratory results interpreted by me: 11/18/18 11/18/18 11/19/18 20:50 20:50 00:09 RBC 4.10 L Hgb 12.6 L Hct 36.0 L Eosinophils % 6.5 H Sodium 136.6 L Glucose 34 L* POC Glucose 295 H Total Protein 6.1 L - Diagnostic Test Radiology reviewed: Image reviewed, Reports reviewed - EKG Interpretation by Me EKG shows normal: Sinus rhythm Rate: Normal Rhythm: NSR [place]/QRS: No: Right axis deviation, Left axis deviation, RBBB, LBBB, IVCD, LAHB/LAFB, LPHB/LPFB, Bifasicular block Voltage: No: Increased voltage, Consistant with LVH, Decreased voltage, Throughout, Limb leads P Waves: No: ARVIN, LAE, Absent, AV Dissociation, Other Heart block present: No: 1st Degree, Mobitz 1, Mobitz 2, CHB (3rd degree block) When compared to previous EKG there are: No significant change Discharge - Discharge Clinical Impression: COPD exacerbation, Hypoglycemia Chest pain Qualifiers: Chest pain type: unspecified Qualified Code(s): R07.9 - Chest pain, unspecified Condition: Good Disposition: HOME, SELF-CARE Instructions: Chronic Obstructive Lung Disease ([facility]), Hypoglycemia ([facility]) Additional Instructions: You have been evaluated in the Emergency Department for chest pain and difficulty breathing. While here, you had blood work that was normal and a chest x-ray that did not show pneumonia. Your breathing has greatly improved and it is now safe to be discharged home. Please follow-up with your primary physician as instructed in 1 week to be rechecked. Return to the Emergency Department if you experience worsening breathing, high fevers, chest pain, or any other concerning symptoms. Prescriptions: Azithromycin [Zithromax 250 mg Tablet] 250 mg PO ASDIR PRN #6 tablet PRN Reason: Hydrocodone/Chlorphen P-Stirex [Tussionex Pennkinetic Susp] 5 ml PO BID #120 chepe.er.12h Methylprednisolone [Medrol Dosepack (4 mg/Tab) 21 Tab/Dosepak] 4 mg PO ASDIR PRN #21 tab.ds.pk PRN Reason: Referrals: MICHELLE SZYMANSKI MD [Primary Care Provider] - Follow up as needed Print Language: Bengali
[2018-11-18] MEDS ORDERED: DEXTROSE 40% GEL 15 GM TUBE ONE (20:46)
[2018-11-18] MEDS ORDERED: DEXTROSE 50%-WATER 25 GM/50 ML DISP.SYRIN IV ONE (20:47)
[2018-11-18] MEDS ORDERED: DEXTROSE 40% GEL 15 GM TUBE PO ONE (21:01)
--- NOTE | 2018-11-18 21:07 | RADIOLOGY REPORT (SQ) ---
EXAM DESCRIPTION: [facility]: XR CHEST 1 VIEW CLINICAL HISTORY: 48 years Male, difficulty breathing COMPARISON: 03/07/2018 FINDINGS: Lungs are clear, with no focal infiltrate, pneumothorax, or pleural effusion. Mediastinum is within normal limits for this positioning. Bony structures are unremarkable. IMPRESSION: No acute pulmonary findings.
[2018-11-18] MEDS ORDERED: IPRATROPIUM/ALBUTEROL 0.5-2.5 MG/3 ML AMPUL NEB ONE (21:09)
[2018-11-18] MEDS ORDERED: AZITHROMYCIN INJ 500 MG VIAL IV ONE (21:09)
[2018-11-18] MEDS ORDERED: METHYLPREDNISOLONE INJ 125 MG/2 ML SDV IV ONE (21:09)
[2018-11-18] MEDS ORDERED: ACETAMINOPHEN WITH CODEINE 120-12 MG/5 ML UDCUP PO ONE (21:10)
[2018-11-18 21:18] LABS: ABSOLUTE BASOPHILS # (AUTO) 0.1 10^3/uL (0.0-0.2); ABSOLUTE EOSINOPHILS # (AUTO) 0.6 10^3/uL (0.0-0.6); ABSOLUTE LYMPHOCYTES (AUTO) 2.4 10^3/uL (0.5-4.7); ABSOLUTE MONOCYTES (AUTO) 0.7 10^3/uL (0.1-1.4); ABSOLUTE NEUT (AUTO) 5.1 10^3/uL (1.7-8.2); BASOPHILS % (AUTO) 1.4 % (0-2); EOSINOPHILS % (AUTO) 6.5 % (0-6); HEMOGLOBIN 12.6 g/dL (13.5-17.0); LYMPHOCYTES % (AUTO) 26.9 % (13-45); MEAN CORPUSCULAR HEMOGLOBIN 30.7 pg (27.0-33.4); MEAN CORPUSCULAR HGB CONC 34.9 g/dL (32.0-36.0); MEAN CORPUSCULAR VOLUME 88 fl (80-97); MONOCYTES % (AUTO) 7.7 % (3-13); PLATELET COUNT 238 10^3/uL (150-450); RED CELL DISTRIBUTION WIDTH 13.3 % (11.5-14.0); SEGMENTED NEUTROPHILS % (AUTO) 57.5 % (42-78); TOTAL CELLS COUNTED % (AUTO) 100 %; WHITE BLOOD COUNT 8.8 10^3/uL (4.0-10.5)
[2018-11-18 21:34] LABS: ALANINE AMINOTRANSFERASE 43 U/L (21-72); ALKALINE PHOSPHATASE 57 U/L (38-126); ANION GAP 11 (5-19); ASPARTATE AMINO TRANSFERASE 27 U/L (17-59); BILIRUBIN,DIRECT 0.2 mg/dL (0.0-0.4); BILIRUBIN,TOTAL 0.3 mg/dL (0.2-1.3); BLOOD UREA NITROGEN 14 mg/dL (7-20); CALCIUM 9.6 mg/dL (8.4-10.2); CARBON DIOXIDE 23 mmol/L (22-30); CHLORIDE 103 mmol/L (98-107); CREATINE KINASE 124 U/L (55-170); SODIUM 136.6 mmol/L (137-145); TOTAL PROTEIN 6.1 g/dL (6.3-8.2)
[2018-11-18 21:47] LABS: CREATINE KINASE MB 1.29 ng/mL (<4.55); NT PRO BNP 124 pg/mL (<125)
[2018-11-18 21:48] LABS: TROPONIN I < 0.012 ng/mL
[2018-11-18 21:54] LABS: GLUCOSE 34 mg/dL (75-110)
[2018-11-19] MEDS ORDERED: ALBUTEROL SULFATE HFA (90 MCG/PUFF) 8 GM MDI (1 MDI/ER DISP) IH PRN (00:20)
[2018-11-19 00:36] VITALS: BP 135/69
--- NOTE | 2018-11-19 10:22 | EKG REPORT ---
SEVERITY:- ABNORMAL ECG - SINUS RHYTHM PROBABLE LEFT ATRIAL ABNORMALITY ABNRM R PROG, CONSIDER ASMI OR LEAD PLACEMENT ST ELEVATION SUGGESTS PERICARDITIS : Confirmed by: Carolina To 19-Nov-2018 10:21:45
== END 2018-11-19 00:36 | disposition home or self-care (01) ==
LOC: ER 19:30
DX: J44.1 Chronic obstructive pulmonary disease with (acute) exacerbation (principal); E10.649 Type 1 diabetes mellitus with hypoglycemia without coma; Z96.41 Presence of insulin pump (external) (internal); R07.89 Other chest pain; R05 Cough; I10 Essential (primary) hypertension; R63.0 Anorexia; R06.02 Shortness of breath; R09.89 Other specified symptoms and signs involving the circulatory and respiratory systems; Z87.891 Personal history of nicotine dependence
CPT/HCPCS: 93005; 99285; 96375; 96365; 36415; 82553; 82962; 82550; 85025; 80053; 84484; 83880; 71045; 93010; 94660; J3490 ×3; J2930; J0456; J7620

== ENCOUNTER 2019-01-21 15:41 | Emergency (ER) | payer OTHER, MEDICAID ==
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
[2019-01-21 17:32] VITALS: BP 145/72
== END 2019-01-21 17:34 | disposition home or self-care (01) ==
LOC: ER 15:41
DX: M25.551 Pain in right hip (principal); M25.552 Pain in left hip; M54.5 Low back pain; V87.7XXA Person injured in collision between other specified motor vehicles (traffic), initial encounter; I10 Essential (primary) hypertension; J44.9 Chronic obstructive pulmonary disease, unspecified; E10.9 Type 1 diabetes mellitus without complications
CPT/HCPCS: 99283

== ENCOUNTER 2019-01-25 18:54 | Emergency (ER) | payer OTHER, MEDICAID ==
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
[2019-01-26] MEDS ORDERED: KETOROLAC TROMETHAMINE 60 MG/2 ML SDV IM ONE (03:17)
[2019-01-26] MEDS ORDERED: DEXAMETHASONE SOD PHOS INJ 10 MG/1 ML VIAL IM ONE (03:17)
[2019-01-26] MEDS ORDERED: LIDOCAINE 5% (700 MG) TRANSDERMAL ADH..PATCH TP ONE (03:17)
[2019-01-26 03:18] VITALS: BP 140/76
== END 2019-01-26 03:56 | disposition home or self-care (01) ==
LOC: ER 18:54
DX: M54.6 Pain in thoracic spine (principal); M54.5 Low back pain; V43.62XA Car passenger injured in collision with other type car in traffic accident, initial encounter; Z87.892 Personal history of anaphylaxis; I10 Essential (primary) hypertension; E11.40 Type 2 diabetes mellitus with diabetic neuropathy, unspecified; J44.9 Chronic obstructive pulmonary disease, unspecified; Z91.040 Latex allergy status; Z91.013 Allergy to seafood; Z88.0 Allergy status to penicillin; Z87.891 Personal history of nicotine dependence
CPT/HCPCS: 99283; 96372; 72110; J1885; J1100

== ENCOUNTER 2019-07-01 07:08 | Emergency (ER) | payer SELFPAY ==
--- NOTE | 2019-07-01 08:18 | RADIOLOGY REPORT (SQ) ---
EXAM DESCRIPTION: CHEST 2 VIEWS COMPLETED DATE/TIME: 07/01/2019 7:42 am REASON FOR STUDY: Difficulty Breathing COMPARISON: 11/18/2018 EXAM PARAMETERS: NUMBER OF VIEWS: two views TECHNIQUE: Digital Frontal and Lateral radiographic views of the chest acquired. RADIATION DOSE: NA LIMITATIONS: none FINDINGS: LUNGS AND PLEURA: No opacities, masses or pneumothorax. No pleural effusion. MEDIASTINUM AND HILAR STRUCTURES: No masses or contour abnormalities. HEART AND VASCULAR STRUCTURES: Heart normal size. No evidence for failure. BONES: No acute findings. HARDWARE: None in the chest. OTHER: No other significant finding. IMPRESSION: No acute abnormality of the lungs. No focal airspace opacity. TECHNICAL DOCUMENTATION: JOB ID: [id number] [employer]- All Rights Reserved Reading location - IP/workstation name: [email or web address]
[2019-07-01] MEDS ORDERED: IPRATROPIUM/ALBUTEROL 0.5-2.5 MG/3 ML AMPUL NEB ONE (09:17)
[2019-07-01 09:49] LABS: ABSOLUTE BASOPHILS # (AUTO) 0.1 10^3/uL (0.0-0.2); ABSOLUTE EOSINOPHILS # (AUTO) 0.4 10^3/uL (0.0-0.6); ABSOLUTE LYMPHOCYTES (AUTO) 2.5 10^3/uL (0.5-4.7); ABSOLUTE MONOCYTES (AUTO) 0.7 10^3/uL (0.1-1.4); ABSOLUTE NEUT (AUTO) 5.8 10^3/uL (1.7-8.2); BASOPHILS % (AUTO) 1.1 % (0-2); EOSINOPHILS % (AUTO) 4.1 % (0-6); HEMATOCRIT 38.5 % (37.9-51.0); HEMOGLOBIN 13.3 g/dL (13.5-17.0); LYMPHOCYTES % (AUTO) 26.1 % (13-45); MEAN CORPUSCULAR HEMOGLOBIN 31.1 pg (27.0-33.4); MEAN CORPUSCULAR HGB CONC 34.5 g/dL (32.0-36.0); MEAN CORPUSCULAR VOLUME 90 fl (80-97); MONOCYTES % (AUTO) 7.3 % (3-13); PLATELET COUNT 235 10^3/uL (150-450); RED BLOOD COUNT 4.28 10^6/uL (4.35-5.55); RED CELL DISTRIBUTION WIDTH 13.9 % (11.5-14.0); SEGMENTED NEUTROPHILS % (AUTO) 61.4 % (42-78); TOTAL CELLS COUNTED % (AUTO) 100 %; WHITE BLOOD COUNT 9.4 10^3/uL (4.0-10.5)
--- NOTE | 2019-07-01 10:09 | ER Document Report ---
ED General - General Chief Complaint: Breathing Difficulty Stated Complaint: SHORT OF BREATH,COUGH,CONGESTION Time Seen by Provider: 07/01/19 09:15 Primary Care Provider: MICHELLE SZYMANSKI MD [ACTIVE STAFF] - Follow up as needed Notes: 48-year-old male with history of diabetes presents with cough for 1 week and dyspnea for 3 days. Patient has associated fever, chills, nausea. Patient states initially cough was productive with phlegm however it is nonproductive. Patient states he has been using albuterol breathing treatments at home which were prescribed to him in the past due to bronchitis. Patient has associated chest wall pain with coughing. Patient denies vomiting, neck pain, abdominal pain, diarrhea/constipation. TRAVEL OUTSIDE OF THE [place] IN LAST 30 DAYS: No - Related Data Allergies/Adverse Reactions: Iodinated Contrast Media Allergy (Severe, Verified 07/01/19 07:31) Anaphylaxis iodine Allergy (Severe, Verified 07/01/19 07:31) Anaphylaxis Penicillins Allergy (Severe, Verified 07/01/19 07:31) throat swelling Shellfish * [Shellfish] Allergy (Severe, Verified 07/01/19 07:31) Anaphylaxis Past Medical History - Social History Smoking Status: Former Smoker Chew tobacco use (# tins/day): No Frequency of alcohol use: None Drug Abuse: None Family History: Reviewed & Not Pertinent, DM - Relatives have both type I and type II diabetes respectively Patient has suicidal ideation: No Patient has homicidal ideation: No - Past Medical History Cardiac Medical History: Reports: Hx Hypertension Denies: Hx Coronary Artery Disease, Hx DVT, Hx Heart Attack Pulmonary Medical History: Reports: Hx COPD, Hx Pneumonia - YEARS AGO Denies: Hx Asthma, Hx Bronchitis Neurological Medical History: Denies: Hx Cerebrovascular Accident, Hx Seizures Endocrine Medical History: Reports: 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Comment Only: 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 HENT: Negative for sore throat. Eyes: Negative for visual changes. Cardiovascular: Positive for chest wall pain. Respiratory: Positive for shortness of breath and coughing. Gastrointestinal: Negative for abdominal pain, vomiting or diarrhea. Genitourinary: Negative for dysuria. Musculoskeletal: Negative for back pain. Skin: Negative for rash. Neurological: Negative for headaches, weakness or numbness. 10 point ROS negative except as marked above and in HPI. Physical Exam - Vital signs Vitals: Temp Pulse Resp BP Pulse Ox 97.5 F 66 18 164/79 H 100 07/01/19 07:17 07/01/19 07:17 07/01/19 07:17 07/01/19 07:17 07/01/19 07:17 - Notes Notes: GENERAL: Well-appearing, well-nourished and in no acute distress. HEAD: Atraumatic, normocephalic. EYES: Extraocular movements intact, sclera anicteric, conjunctiva are normal. NECK: Normal range of motion, supple without lymphadenopathy or JVD. LUNGS: Breath sounds clear to auscultation bilaterally and equal. No wheezes rales or rhonchi. No tachypnea. No cyanosis. No accessory muscle use. No hypoxia. No tripoding. HEART: Regular rate and rhythm without murmurs, rubs or gallops. ABDOMEN: Soft, nontender. No guarding, no rebound. No masses appreciated. EXTREMITIES: Normal range of motion, no pitting or edema. No clubbing or cyanosis. NEUROLOGICAL: Cranial nerves II through XII grossly intact. Normal speech, normal gait. PSYCH: Normal mood, normal affect. SKIN: Warm, Dry, normal turgor, no rashes or lesions noted. Course - Re-evaluation Re-evalutation: 07/01/19 48-year-old male presents with cough for 1 week and dyspnea for 3 days. Patient is nontoxic in appearance. No hypoxia. No tachypnea. No signs of acute respiratory distress. No tachycardia. PE clinically unlikely. Patient is low risk by Well's criteria. Clinically excluded by PERC due to age < 50, absence of tachycardia, hypoxia, previous VTE, recent trauma or surgery, hemoptysis, or unilateral leg swelling. Chest x-ray is clear. EKG is normal sinus rhythm at 60. Cardiac work-up initiated. Breathing treatment ordered. 07/01/19 11:21 Pt does not feel short of breath. Pt states he would like to go home. Reviewed all results of workup with pt and pt's . Pt prescribed Tessalon Perles for cough and inhaler. Pt given referral to PCP for further workup. Pt voices understanding and agrees with plan of care. - Vital Signs Vital signs: Temp Pulse Resp BP Pulse Ox 97.9 F 66 11 L 159/85 H 100 07/01/19 08:05 07/01/19 07:17 07/01/19 11:01 07/01/19 11:00 07/01/19 11:01 - Laboratory Result Diagrams: 07/01/19 08:14 07/01/19 08:14 Laboratory results interpreted by me: 07/01/19 07/01/19 07/01/19 08:14 08:14 08:26 RBC 4.28 L Hgb 13.3 L Sodium 136.4 L BUN 24 H Glucose 175 H POC Glucose 178 H Discharge - Discharge Clinical Impression: Viral URI with cough Condition: Stable Disposition: HOME, SELF-CARE Instructions: Upper Respiratory Illness ([facility]), Viral Syndrome ([facility]) Additional Instructions: Please take medications as prescribed. Your chest x-ray was normal. Your workup was reassuring today. Please follow up with one of the clinics listed in 2-3 days. Return to ER for any worsening symptoms, including fever, worsening shortness of breath, chest pain, or any other concerning symptoms. Prescriptions: Benzonatate [Tessalon Perles 100 mg Capsule] 100 mg PO Q8HP PRN #40 capsule PRN Reason: Albuterol Sulfate [Proair HFA Inhalation Aerosol 8.5 gm MDI] 2 puff IH Q4H PRN #1 mdi PRN Reason: Referrals: MICHELLE SZYMANSKI MD [ACTIVE STAFF] - Follow up in 3-5 days ALEXI YANG MD [ACTIVE STAFF] - Follow up in 3-5 days
[2019-07-01 10:14] LABS: ALBUMIN 3.9 g/dL (3.5-5.0); ALKALINE PHOSPHATASE 66 U/L (38-126); ANION GAP 9 (5-19); ASPARTATE AMINO TRANSFERASE 23 U/L (17-59); BILIRUBIN,DIRECT 0.2 mg/dL (0.0-0.4); BILIRUBIN,TOTAL 0.4 mg/dL (0.2-1.3); BLOOD UREA NITROGEN 24 mg/dL (7-20); CALCIUM 9.5 mg/dL (8.4-10.2); CARBON DIOXIDE 23 mmol/L (22-30); CHLORIDE 104 mmol/L (98-107); GLUCOSE 175 mg/dL (75-110); POTASSIUM 4.2 mmol/L (3.6-5.0); TOTAL PROTEIN 6.3 g/dL (6.3-8.2)
--- NOTE | 2019-07-01 11:09 | EKG REPORT ---
SEVERITY:- ABNORMAL ECG - SINUS RHYTHM PROBABLE ANTEROSEPTAL INFARCT, OLD : Confirmed by: Crow Agrawal MD 01-Jul-2019 11:08:44
[2019-07-01 11:13] VITALS: BP 159/85
== END 2019-07-01 11:51 | disposition home or self-care (01) ==
LOC: ER 07:08
DX: J06.9 Acute upper respiratory infection, unspecified (principal); B97.89 Other viral agents as the cause of diseases classified elsewhere; J44.9 Chronic obstructive pulmonary disease, unspecified; Z79.899 Other long term (current) drug therapy; R05 Cough; R06.02 Shortness of breath; R50.9 Fever, unspecified; R11.0 Nausea; R07.89 Other chest pain; I10 Essential (primary) hypertension; E11.40 Type 2 diabetes mellitus with diabetic neuropathy, unspecified; Z87.891 Personal history of nicotine dependence; Z87.892 Personal history of anaphylaxis; Z91.041 Radiographic dye allergy status; Z91.013 Allergy to seafood; Z88.0 Allergy status to penicillin; Z87.01 Personal history of pneumonia (recurrent)
CPT/HCPCS: 93005; 36415; 82962; 85025; 80053; 84484; 71046; 93010; J7620; 94640; 99285

== ENCOUNTER 2019-09-07 14:20 | Observation (INO) | payer SELFPAY ==
[2019-09-07] MEDS ORDERED: ASPIRIN 81 MG TABLET, CHEWABLE PO ONE (15:10)
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
[2019-09-07 16:44] LABS: ABSOLUTE BASOPHILS # (AUTO) 0.1 10^3/uL (0.0-0.2); ABSOLUTE EOSINOPHILS # (AUTO) 0.2 10^3/uL (0.0-0.6); ABSOLUTE LYMPHOCYTES (AUTO) 1.8 10^3/uL (0.5-4.7); ABSOLUTE MONOCYTES (AUTO) 0.5 10^3/uL (0.1-1.4); ABSOLUTE NEUT (AUTO) 4.4 10^3/uL (1.7-8.2); BASOPHILS % (AUTO) 1.2 % (0-2); EOSINOPHILS % (AUTO) 2.3 % (0-6); HEMATOCRIT 38.5 % (37.9-51.0); HEMOGLOBIN 13.3 g/dL (13.5-17.0); LYMPHOCYTES % (AUTO) 25.8 % (13-45); MEAN CORPUSCULAR HEMOGLOBIN 30.7 pg (27.0-33.4); MEAN CORPUSCULAR HGB CONC 34.5 g/dL (32.0-36.0); MEAN CORPUSCULAR VOLUME 89 fl (80-97); MONOCYTES % (AUTO) 7.7 % (3-13); PLATELET COUNT 285 10^3/uL (150-450); RED BLOOD COUNT 4.33 10^6/uL (4.35-5.55); RED CELL DISTRIBUTION WIDTH 13.2 % (11.5-14.0); TOTAL CELLS COUNTED % (AUTO) 100 %
[2019-09-07 16:59] LABS: ALKALINE PHOSPHATASE 56 U/L (38-126); ASPARTATE AMINO TRANSFERASE 28 U/L (17-59); BILIRUBIN,TOTAL 0.4 mg/dL (0.2-1.3); BLOOD UREA NITROGEN 15 mg/dL (7-20); CALCIUM 9.2 mg/dL (8.4-10.2); CARBON DIOXIDE 29 mmol/L (22-30); CHLORIDE 100 mmol/L (98-107); CREATINE KINASE 99 U/L (55-170); GLUCOSE 95 mg/dL (75-110); POTASSIUM 4.8 mmol/L (3.6-5.0); TOTAL PROTEIN 6.3 g/dL (6.3-8.2)
[2019-09-07 17:00] LABS: ANION GAP 4 (5-19)
--- NOTE | 2019-09-07 17:05 | ER Document Report ---
ED Cardiac - General Chief Complaint: Chest Pain > 30 Stated Complaint: CHEST PAIN/LEFT ARM NUMBNESS Time Seen by Provider: 09/07/19 15:07 Primary Care Provider: MICHELLE SZYMANSKI MD [Primary Care Provider] - Follow up as needed Mode of Arrival: Ambulatory Information source: Patient Notes: Mr. Muñoz is a 49-year-old male with history of hypertension insulin-dependent diabetes mellitus prior smoker and gastroesophageal reflux disease. Patient presents complaining of left chest pain into his left arm down the medial side to the elbow occurring randomly. States that occurs at rest as well as with minimal exertion. Patient has seen his doctor recently last week for an elevated potassium lab work that was drawn. Patient states his potassium was 6.0 on a phone call they received on Friday. Today patient went in to see his primary care physician and complained of the chest discomfort and was sent to the emergency department. Currently patient is not having any palpitations or any chest pain at this time. TRAVEL OUTSIDE OF THE [place] IN LAST 30 DAYS: No - HPI Was the onset of pain: Gradual Is the pain a: New problem Chest pain location: Under breast Quality of pain: Intermittent, Other - Squeezing nature Chest pain radiation location: Left arm Severity now: None Severity at worst: Mild Pain level currently: 0 Chest pain precipitating factors: Physical Exertion Cardiac risk factors: Diabetes, Hypertension, Smoker Positive cardiac history: No Associated symptoms: Palpitations Exacerbated by: Other - Chest pain occurs at rest as well as at minimal exertion. Relieved by: Rest Similar symptoms previously: Yes - In the past week occurrences have occurred of chest pain left arm pain. Recently seen / treated by doctor: Yes - Visited primary care physician today as follow-up on his potassium elevatio - Related Data Allergies/Adverse Reactions: Iodinated Contrast Media Allergy (Severe, Verified 07/01/19 07:31) Anaphylaxis iodine Allergy (Severe, Verified 07/01/19 07:31) Anaphylaxis Penicillins Allergy (Severe, Verified 07/01/19 07:31) throat swelling Shellfish * [Shellfish] Allergy (Severe, Verified 07/01/19 07:31) Anaphylaxis Past Medical History - Social History Smoking Status: Former Smoker Drug Abuse: None Lives with: Family Family History: Reviewed & Not Pertinent, CAD, DM - Relatives have both type I and type II diabetes respectively Patient has suicidal ideation: No Patient has homicidal ideation: No - Past Medical History Cardiac Medical History: Reports: Hx Hypertension Denies: Hx Coronary Artery Disease, Hx DVT, Hx Heart Attack Pulmonary Medical History: Reports: Hx COPD, Hx Pneumonia - YEARS AGO Denies: Hx Asthma, Hx Bronchitis Neurological Medical History: Denies: Hx Cerebrovascular Accident, Hx Seizures Endocrine Medical History: Reports: 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Comment Only: 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 Renal/ Medical History: Denies: Hx Peritoneal Dialysis GI Medical History: Reports: Hx Hiatal Hernia Musculoskeletal Medical History: Reports Hx Arthritis - GENERALIZED Psychiatric Medical History: Reports: Hx Depression Past Surgical History: Reports: Hx Orthopedic Surgery - L HIP - Immunizations Hx Diphtheria, Pertussis, Tetanus Vaccination: Yes Hx Pneumococcal Vaccination: 06/20/12 Review of Systems - Review of Systems Constitutional: Chills EENT: Other - Wears glasses Cardiovascular: Chest pain, Palpitations Respiratory: No symptoms reported Gastrointestinal: Other - History of GERD Genitourinary: No symptoms reported Male Genitourinary: No symptoms reported Musculoskeletal: Joint pain, Other - Throughout your pain in multiple joints Skin: No symptoms reported Hematologic/Lymphatic: No symptoms reported Neurological/Psychological: No symptoms reported Physical Exam - Vital signs Vitals: Temp Pulse Resp BP Pulse Ox 97.4 F 69 16 135/72 H 100 09/07/19 15:02 09/07/19 15:02 09/07/19 15:02 09/07/19 15:02 09/07/19 15:02 Interpretation: Normal - General General appearance: Appears well, Alert - HEENT Head: Normocephalic, Atraumatic Eyes: Normal Pupils: PERRL - Respiratory Respiratory status: No respiratory distress Chest status: Nontender Breath sounds: Normal Chest palpation: Normal - Cardiovascular Rhythm: Regular Heart sounds: Normal auscultation Murmur: No - Abdominal Inspection: Normal Distension: No distension Bowel sounds: Normal Tenderness: Nontender Organomegaly: No organomegaly - Back Back: Normal, Nontender - Extremities General upper extremity: Normal inspection, Nontender, Normal color, Normal ROM, Normal temperature General lower extremity: Normal inspection, Nontender, Normal color, Normal ROM, Normal temperature, Normal weight bearing. No: Magdy's sign - Neurological Neuro grossly intact: Yes Cognition: Normal Orientation: AAOx4 Pinckney Coma Scale Eye Opening: Spontaneous Mychal Coma Scale Verbal: Oriented Mychal Coma Scale Motor: Obeys Commands Pinckney Coma Scale Total: 15 Speech: Normal Motor strength normal: LUE, RUE, LLE, RLE Sensory: Normal - Psychological Associated symptoms: Normal affect, Normal mood - Skin Skin Temperature: Warm Skin Moisture: Dry Skin Color: Normal Course - Re-evaluation Re-evalutation: 09/07/19 19:01 Patient remains chest pain-free. Patient is hemodynamically stable. Second set of enzymes cardiac are continued to be normal. No acute EKG changes on the monitor. Discussed with Dr. Szymanski who because of history of chest pain that is new and in a patient who has high risk factors for coronary artery disease with diabetes mellitus hypertension former smoker and a 49-year-old male Dr. Szymanski decided to admit patient to [facility] bed. With patient - Vital Signs Vital signs: Temp Pulse Resp BP Pulse Ox 97.4 F 69 13 135/72 H 100 09/07/19 15:02 09/07/19 15:02 09/07/19 17:11 09/07/19 15:02 09/07/19 17:17 - Laboratory Result Diagrams: 09/07/19 16:31 09/07/19 16:31 Laboratory results interpreted by me: 09/07/19 09/07/19 16:31 16:31 RBC 4.33 L Hgb 13.3 L Sodium 133.2 L Anion Gap 4 L - EKG Interpretation by In Additional EKG results interpreted by nd: 09/07/19 17:35 Twelve-lead EKG done at time 1431 shows a normal sinus rhythm no acute ST-T wave changes. Question of old anterior [place] with poor R wave progression until V3. This is not new noted June 2019. Discharge - Discharge Clinical Impression: Diabetes mellitus type 1, controlled, insulin dependent, Chest pain with high risk for cardiac etiology HTN (hypertension) Qualifiers: Hypertension type: essential hypertension Qualified Code(s): I10 - Essential (primary) hypertension Condition: Serious Disposition: ADMITTED INPATIENT Admitting Provider: armand Unit Admitted: [facility] Referrals: MICHELLE SZYMANSKI MD [Primary Care Provider] - Follow up as needed
[2019-09-07 17:09] LABS: CREATINE KINASE MB 1.96 ng/mL (<4.55); TROPONIN I < 0.012 ng/mL
--- NOTE | 2019-09-07 18:07 | RADIOLOGY REPORT (SQ) ---
EXAM DESCRIPTION: CHEST SINGLE VIEW COMPLETED DATE/TIME: 09/07/2019 5:50 pm REASON FOR STUDY: chest pain COMPARISON: Two-view chest 07/01/2019 AP chest 11/18/2018 EXAM PARAMETERS: NUMBER OF VIEWS: One view. TECHNIQUE: Single frontal radiographic view of the chest acquired. RADIATION DOSE: NA LIMITATIONS: None. FINDINGS: LUNGS AND PLEURA: No opacities, masses or pneumothorax. No pleural effusion. MEDIASTINUM AND HILAR STRUCTURES: No masses. Contour normal. HEART AND VASCULAR STRUCTURES: Heart normal in size. Normal vasculature. BONES: No acute findings. HARDWARE: None in the chest. OTHER: No other significant finding. IMPRESSION: NO ACUTE RADIOGRAPHIC FINDING IN THE CHEST. TECHNICAL DOCUMENTATION: JOB ID: [id number] [employer]- All Rights Reserved Reading location - IP/workstation name: [email or web address]
[2019-09-07] MEDS ORDERED: GLUCAGON,HUMAN RECOMB 1 MG INJ IM PRN (19:28)
[2019-09-07] MEDS ORDERED: DEXTROSE 50%-WATER 25 GM/50 ML DISP.SYRIN IV PRN ×2 (19:28)
[2019-09-07] MEDS ORDERED: DEXTROSE 40% GEL 15 GM TUBE PO PRN ×2 (19:28)
[2019-09-07] MEDS ORDERED: INSULIN LISPRO 100 UNIT/ML 3 ML VIAL SUBCUT SCH (22:00)
[2019-09-07 23:17] LABS: CREATINE KINASE MB 1.81 ng/mL (<4.55)
[2019-09-07 23:26] LABS: TROPONIN I < 0.012 ng/mL
[2019-09-08 05:05] LABS: ABSOLUTE BASOPHILS # (AUTO) 0.1 10^3/uL (0.0-0.2); ABSOLUTE EOSINOPHILS # (AUTO) 0.1 10^3/uL (0.0-0.6); ABSOLUTE LYMPHOCYTES (AUTO) 1.2 10^3/uL (0.5-4.7); ABSOLUTE MONOCYTES (AUTO) 0.5 10^3/uL (0.1-1.4); ABSOLUTE NEUT (AUTO) 3.4 10^3/uL (1.7-8.2); BASOPHILS % (AUTO) 1.5 % (0-2); EOSINOPHILS % (AUTO) 2.6 % (0-6); HEMATOCRIT 35.3 % (37.9-51.0); HEMOGLOBIN 12.3 g/dL (13.5-17.0); LYMPHOCYTES % (AUTO) 23.3 % (13-45); MEAN CORPUSCULAR HEMOGLOBIN 31.1 pg (27.0-33.4); MEAN CORPUSCULAR HGB CONC 34.9 g/dL (32.0-36.0); MEAN CORPUSCULAR VOLUME 89 fl (80-97); PLATELET COUNT 228 10^3/uL (150-450); RED BLOOD COUNT 3.96 10^6/uL (4.35-5.55); RED CELL DISTRIBUTION WIDTH 13.3 % (11.5-14.0); SEGMENTED NEUTROPHILS % (AUTO) 63.6 % (42-78); TOTAL CELLS COUNTED % (AUTO) 100 %; WHITE BLOOD COUNT 5.3 10^3/uL (4.0-10.5)
[2019-09-08 05:32] LABS: ALBUMIN 3.1 g/dL (3.5-5.0); ALKALINE PHOSPHATASE 58 U/L (38-126); ANION GAP 5 (5-19); ASPARTATE AMINO TRANSFERASE 23 U/L (17-59); BILIRUBIN,TOTAL 0.2 mg/dL (0.2-1.3); BLOOD UREA NITROGEN 15 mg/dL (7-20); CALCIUM 8.7 mg/dL (8.4-10.2); CARBON DIOXIDE 28 mmol/L (22-30); CHLORIDE 98 mmol/L (98-107); CHOLESTEROL 110.68 mg/dL (0-200); CREATINE KINASE 50 U/L (55-170); POTASSIUM 5.5 mmol/L (3.6-5.0); TOTAL PROTEIN 5.1 g/dL (6.3-8.2); TRIGLYCERIDES 109 mg/dL (<150)
[2019-09-08 05:45] LABS: DIRECT LDL 58 mg/dL (<100); TROPONIN I < 0.012 ng/mL
[2019-09-08 05:58] LABS: GLUCOSE 421 mg/dL (75-110)
[2019-09-08] MEDS ORDERED: PANTOPRAZOLE SODIUM 40 MG TABLET.DR PO SCH (06:00)
[2019-09-08] MEDS ORDERED: INSULIN REG, HUMAN 100 UNIT/ML 3 ML VIAL (PYX) ONE (06:13)
[2019-09-08] MEDS ORDERED: INSULIN REG, HUMAN 100 UNIT/ML 3 ML VIAL SUBCUT ONE (06:15)
[2019-09-08] MEDS ORDERED: ENOXAPARIN SODIUM INJ 40 MG/0.4 ML DISP.SYRIN SUBCUT SCH (10:00)
[2019-09-08] MEDS ORDERED: ASPIRIN 81 MG TABLET, ENT COATED PO SCH (10:00)
[2019-09-08 10:49] LABS: CREATINE KINASE MB 1.03 ng/mL (<4.55)
[2019-09-08 10:55] LABS: TROPONIN I < 0.012 ng/mL
--- NOTE | 2019-09-08 14:21 | EKG REPORT ---
SEVERITY:- NORMAL ECG - SINUS RHYTHM : Confirmed by: Carolina To 08-Sep-2019 14:20:48
[2019-09-08] MEDS ORDERED: REGADENOSON INJ 0.4 MG/5 ML DISP.SYRIN IV ONE (14:51)
[2019-09-08] MEDS ORDERED: INFLUENZA QUAD (6MOS+) 2019-20 VAC 0.5 ML SYR IM ONE (17:55)
[2019-09-08 17:59] VITALS: BP 135/72
--- NOTE | 2019-09-08 18:11 | PDOC H&P ---
History of Present Illness Admission Date/PCP: 09/07/19 19:20 MICHELLE SZYMANSKI History of Present Illness: MAREK MAURICIO is a 49 year old male patient known to my practice who was directed to the ED for reported intermittent chest pain over preceding four to five days. He localized pain to left side of his chest, nott related to efforts, associated numbness and tingling into his left upper extremity and lasted about 15 to 30 minutes. He denied any associated dyspnea, palpitation,diaphoresis, nausea or vomiting. His initial evaluation in the ED was unrevealing. Due to his morbidities and concern for possible acute coronary syndrome he was advised hospitalization for further evaluation and management. His morbidities are listed below. 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 GI Medical History: Reports: Hiatal Hernia Musculoskeltal Medical History: Reports: Arthritis - GENERALIZED Psychiatric Medical History: Reports: Depression Hematology: Denies: Anemia Past Surgical History Past Surgical History: Reports: Orthopedic Surgery - L HIP Social History Lives with: Family Smoking Status: Former Smoker Frequency of Alcohol Use: None Hx Recreational Drug Use: No Hx Prescription Drug Abuse: No - Advance Directive Resuscitation Status: Full Code Family History Family History: Reviewed & Not Pertinent, CAD, DM - Relatives have both type I and type II diabetes respectively Parental Family History Reviewed: Yes Children Family History Reviewed: Yes Sibling(s) Family History Reviewed.: Yes Medication/Allergy Home Medications: Amlodipine Besylate [Norvasc 5 mg Tablet] 5 mg PO DAILY 09/07/19 Aspirin [Aspirin 81 mg Chewable Tablet] 81 mg PO DAILY 09/07/19 Cholecalciferol (Vitamin D3) [Vitamin D3 400 Unit Tablet] 400 unit PO DAILY 09/07/19 Fluticasone/Umeclidin/Vilanter [Trelegy 100-62.5-25 Mcg Ellipta 14 Dose/Dpi] 1 puff IH DAILY 09/07/19 Insulin Lispro [Humalog Insulin (Lispro) 100 unit/mL] 0 units PUMP ASDIR PRN 09/07/19 Multivitamin [Multiple Vitamins] 1 tab PO DAILY 09/07/19 Valsartan 320 mg PO DAILY 09/07/19 Allergies/Adverse Reactions: Iodinated Contrast Media Allergy (Severe, Verified 07/01/19 07:31) Anaphylaxis iodine Allergy (Severe, Verified 07/01/19 07:31) Anaphylaxis Penicillins Allergy (Severe, Verified 07/01/19 07:31) throat swelling Shellfish * [Shellfish] Allergy (Severe, Verified 07/01/19 07:31) Anaphylaxis Review of Systems Constitutional: ABSENT: chills, fever(s), headache(s), weight gain, weight loss Eyes: ABSENT: visual disturbances Ears: ABSENT: hearing changes Cardiovascular: PRESENT: chest pain. ABSENT: as per HPI, dyspnea on exertion, edema, orthropnea, palpitations Respiratory: ABSENT: cough, hemoptysis Gastrointestinal: ABSENT: abdominal pain, constipation, diarrhea, hematemesis, hematochezia, nausea, vomiting Musculoskeletal: ABSENT: joint swelling Integumentary: ABSENT: diaphoresis, rash, wounds Neurological: PRESENT: numbness - left upper extremity, tingling - left upper extremity. ABSENT: abnormal gait, abnormal speech, confusion, dizziness, focal weakness, syncope Psychiatric: ABSENT: anxiety, depression, homidical ideation, suicidal ideation Endocrine: ABSENT: cold intolerance, heat intolerance, menstrual abnormalities, polydipsia, polyuria Hematologic/Lymphatic: ABSENT: easy bleeding, easy bruising, lymphadenopathy Allergic/Immunologic: ABSENT: seasonal rhinorrhea Physical Exam Vital Signs: Temp Pulse Resp BP Pulse Ox 97.4 F 69 14 157/78 H 100 09/07/19 15:02 09/07/19 15:02 09/07/19 19:01 09/07/19 19:01 09/07/19 19:01 Intake & Output 09/06/19 09/07/19 09/08/19 06:59 06:59 06:59 Weight 61.3 kg General appearance: PRESENT: no acute distress, well-developed, well-nourished Head exam: PRESENT: atraumatic, normocephalic Eye exam: PRESENT: conjunctiva pink, EOMI, PERRLA. ABSENT: scleral icterus Ear exam: PRESENT: normal external ear exam Mouth exam: PRESENT: moist, tongue midline Neck exam: PRESENT: full ROM. ABSENT: carotid bruit, JVD, lymphadenopathy, thyromegaly Respiratory exam: PRESENT: clear to auscultation cristian Cardiovascular exam: PRESENT: RRR, +S1, +S2. ABSENT: diastolic murmur, rubs, systolic murmur Pulses: PRESENT: normal dorsalis pedis pul, +2 pedal pulses bilateral Vascular exam: ABSENT: pallor GI/Abdominal exam: PRESENT: normal bowel sounds, soft. ABSENT: distended, guarding, mass, organolmegaly, rebound, tenderness Rectal exam: PRESENT: deferred Extremities exam: ABSENT: pedal edema Musculoskeletal exam: PRESENT: ambulatory Neurological exam: PRESENT: alert, awake, oriented to person, oriented to place, oriented to time, oriented to situation, CN II-XII grossly intact. ABSENT: motor sensory deficit Psychiatric exam: PRESENT: appropriate affect, normal mood. ABSENT: homicidal ideation, suicidal ideation Skin exam: PRESENT: dry, warm Results Laboratory Results: 09/07/19 16:31 09/07/19 16:31 09/07/19 09/07/19 16:31 16:31 WBC 7.0 RBC 4.33 L Hgb 13.3 L Hct 38.5 MCV 89 MCH 30.7 MCHC 34.5 RDW 13.2 Plt Count 285 Seg Neutrophils % 63.0 Sodium 133.2 L Potassium 4.8 Chloride 100 Carbon Dioxide 29 Anion Gap 4 L BUN 15 Creatinine 1.10 Est GFR ( Amer) > 60 Glucose 95 Calcium 9.2 Total Bilirubin 0.4 AST 28 Alkaline Phosphatase 56 Total Protein 6.3 Albumin 4.0 09/07/19 09/07/19 09/07/19 16:31 16:31 18:00 Creatine Kinase 99 CK-MB (CK-2) 1.96 Troponin I < 0.012 < 0.012 Impressions: Chest X-Ray 09/07/19 17:37 IMPRESSION: NO ACUTE RADIOGRAPHIC FINDING IN THE CHEST. Assessment & Plan - Diagnosis (1) Chest pain with high risk for cardiac etiology Is this a current diagnosis for this admission?: Yes Plan: See admitting attending physician orders for details about care plan. (2) Diabetes mellitus type 1, controlled, insulin dependent Is this a current diagnosis for this admission?: Yes Plan: See admitting attending physician orders for details about care plan. (3) HTN (hypertension) Qualifiers: Hypertension type: essential hypertension Qualified Code(s): I10 - Essential (primary) hypertension Is this a current diagnosis for this admission?: Yes Plan: See admitting attending physician orders for details about care plan. - Time Time Spent: 50 to 70 Minutes Medications reviewed and adjusted accordingly: Yes Anticipated discharge: Home Within: within 48 hours - Inpatient Certification Based on my medical assessment, after consideration of the patient's comorbidities, presenting symptoms, or acuity I expect that the services needed warrant INPATIENT care.: Yes I certify that my determination is in accordance with my understanding of Medicare's requirements for reasonable and necessary INPATIENT services [42 CFR 412.3e].: Yes Medical Necessity: Significant Comorbidiites Make Outpatient Treatment Too Risky, Need Close Monitoring Due to Risk of Patient Decompensation, Need For IV Fluids, Need For Continuous Telemetry Monitoring, Risk of Complication if Not Cared For in Hospital, Risk of Diagnosis Which Will Require Inpatient Eval/Care/Monitoring 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
--- NOTE | 2019-09-08 18:13 | PDOC DISCHARGE SUMMARY ---
Impression - Admit/DC Date/PCP Admission Date/Primary Care Provider: 09/07/19 19:20 MICHELLE SZYMANSKI Discharge Date: 09/08/19 - Assessment Summary: Patient was admitted for chest pain to rule out acute coronary syndrome. His serial cardiac enzymes were within normal limits. His pharmacologic stress test was without any findings to suggest acute cardiac event. He will be discharge home today and follow up in the office as instructed upon discharge. - Additional Information Resuscitation Status: Full Code Discharge Diet: Cardiac, Diabetic Discharge Activity: Activity As Tolerated Referrals: MICHELLE SZYMANSKI MD [Primary Care Provider] - 09/21/19 10:00 am Home Medications: Amlodipine Besylate [Norvasc 5 mg Tablet] 5 mg PO DAILY 09/07/19 Aspirin [Aspirin 81 mg Chewable Tablet] 81 mg PO DAILY 09/07/19 Cholecalciferol (Vitamin D3) [Vitamin D3 400 Unit Tablet] 400 unit PO DAILY 09/07/19 Fluticasone/Umeclidin/Vilanter [Trelegy 100-62.5-25 Mcg Ellipta 14 Dose/Dpi] 1 puff IH DAILY 09/07/19 Insulin Lispro [Humalog Insulin (Lispro) 100 unit/mL] 0 units PUMP ASDIR PRN 09/07/19 Multivitamin [Multiple Vitamins] 1 tab PO DAILY 09/07/19 Valsartan 320 mg PO DAILY 09/07/19 History of Present Illiness History of Present Illness: MAREK MAURICIO is a 49 year old male patient known to my practice who was directed to the ED for reported intermittent chest pain over preceding four to five days. He localized pain to left side of his chest, nott related to efforts, associated numbness and tingling into his left upper extremity and lasted about 15 to 30 minutes. He denied any associated dyspnea, palpitation,diaphoresis, nausea or vomiting. His initial evaluation in the ED was unrevealing. Due to his morbidities and concern for possible acute coronary syndrome he was advised hospitalization for further evaluation and management. His morbidities are listed below. Hospital Course Hospital Course: Patient was admitted for chest pain to rule out acute coronary syndrome. His serial cardiac enzymes were within normal limits. His pharmacologic stress test was without any findings to suggest acute cardiac event. He will be discharge home today and follow up in the office as instructed upon discharge. Physical Exam Vital Signs: Temp Pulse Resp BP Pulse Ox 98.1 F 78 16 142/68 H 98 09/08/19 16:37 09/08/19 16:37 09/08/19 16:37 09/08/19 16:37 09/08/19 16:37 Intake & Output 09/07/19 09/08/19 09/09/19 06:59 06:59 06:59 Intake Total 240 235 Output Total 0 Balance 240 235 Weight 61.8 kg General appearance: PRESENT: no acute distress, well-developed, well-nourished Head exam: PRESENT: atraumatic, normocephalic Eye exam: PRESENT: conjunctiva pink. ABSENT: scleral icterus Ear exam: PRESENT: TM's normal bilaterally Mouth exam: PRESENT: moist Respiratory exam: PRESENT: clear to auscultation cristian Cardiovascular exam: PRESENT: RRR. ABSENT: diastolic murmur, rubs, systolic murmur GI/Abdominal exam: PRESENT: normal bowel sounds, soft. ABSENT: distended, guarding, mass, organolmegaly, rebound, tenderness Extremities exam: ABSENT: pedal edema Neurological exam: PRESENT: alert, awake, oriented to person, oriented to place, oriented to time, oriented to situation, CN II-XII grossly intact. ABSENT: motor sensory deficit Psychiatric exam: PRESENT: appropriate affect, normal mood. ABSENT: homicidal ideation, suicidal ideation Skin exam: PRESENT: dry, warm Results Laboratory Results: WBC 5.3 10^3/uL (4.0-10.5) 09/08/19 04:24 RBC 3.96 10^6/uL (4.35-5.55) L 09/08/19 04:24 Hgb 12.3 g/dL (13.5-17.0) L 09/08/19 04:24 Hct 35.3 % (37.9-51.0) L 09/08/19 04:24 MCV 89 fl (80-97) 09/08/19 04:24 MCH 31.1 pg (27.0-33.4) 09/08/19 04:24 MCHC 34.9 g/dL (32.0-36.0) 09/08/19 04:24 RDW 13.3 % (11.5-14.0) 09/08/19 04:24 Plt Count 228 10^3/uL (150-450) 09/08/19 04:24 Lymph % (Auto) 23.3 % (13-45) 09/08/19 04:24 Harrison % (Auto) 9.0 % (3-13) 09/08/19 04:24 Eos % (Auto) 2.6 % (0-6) 09/08/19 04:24 Baso % (Auto) 1.5 % (0-2) 09/08/19 04:24 Absolute Neuts (auto) 3.4 10^3/uL (1.7-8.2) 09/08/19 04:24 Absolute Lymphs (auto) 1.2 10^3/uL (0.5-4.7) 09/08/19 04:24 Absolute Monos (auto) 0.5 10^3/uL (0.1-1.4) 09/08/19 04:24 Absolute Eos (auto) 0.1 10^3/uL (0.0-0.6) 09/08/19 04:24 Absolute Basos (auto) 0.1 10^3/uL (0.0-0.2) 09/08/19 04:24 Seg Neutrophils % 63.6 % (42-78) 09/08/19 04:24 Sodium 130.7 mmol/L (137-145) L 09/08/19 04:24 Potassium 5.5 mmol/L (3.6-5.0) H 09/08/19 04:24 Chloride 98 mmol/L (98-107) 09/08/19 04:24 Carbon Dioxide 28 mmol/L (22-30) 09/08/19 04:24 Anion Gap 5 (5-19) 09/08/19 04:24 BUN 15 mg/dL (7-20) 09/08/19 04:24 Creatinine 1.12 mg/dL (0.52-1.25) 09/08/19 04:24 Est GFR ( Amer) > 60 (>60) 09/08/19 04:24 Est GFR (MDRD) Non-Af > 60 (>60) 09/08/19 04:24 Glucose 421 mg/dL (75-110) H* 09/08/19 04:24 POC Glucose 457 mg/dL (70-110) H* 09/08/19 05:55 Hemoglobin A1c % 6.9 % (4.7-6.0) H 09/08/19 04:24 Calcium 8.7 mg/dL (8.4-10.2) 09/08/19 04:24 Total Bilirubin 0.2 mg/dL (0.2-1.3) 09/08/19 04:24 Direct Bilirubin 0.0 mg/dL (0.0-0.4) 09/08/19 04:24 Neonat Total Bilirubin Not Reportable 09/08/19 04:24 Neonat Direct Bilirubin Not Reportable 09/08/19 04:24 Neonat Indirect Bili Not Reportable 09/08/19 04:24 AST 23 U/L (17-59) 09/08/19 04:24 ALT 40 U/L (<50) 09/08/19 04:24 Alkaline Phosphatase 58 U/L (38-126) 09/08/19 04:24 Creatine Kinase 45 U/L (55-170) L 09/08/19 10:04 CK-MB (CK-2) 1.03 ng/mL (<4.55) 09/08/19 10:04 Troponin I < 0.012 ng/mL 09/08/19 10:04 Total Protein 5.1 g/dL (6.3-8.2) L 09/08/19 04:24 Albumin 3.1 g/dL (3.5-5.0) L 09/08/19 04:24 Triglycerides 109 mg/dL (<150) 09/08/19 04:24 Cholesterol 110.68 mg/dL (0-200) 09/08/19 04:24 LDL Cholesterol Direct 58 mg/dL (<100) 09/08/19 04:24 VLDL Cholesterol 22.0 mg/dL (10-31) 09/08/19 04:24 HDL Cholesterol 42 mg/dL (>40) 09/08/19 04:24 09/07/19 09/07/19 09/07/19 16:31 18:00 22:19 CK-MB (CK-2) 1.96 1.81 Troponin I < 0.012 < 0.012 < 0.012 09/08/19 09/08/19 04:24 10:04 CK-MB (CK-2) 1.10 1.03 Troponin I < 0.012 < 0.012 Impressions: Chest X-Ray 09/07/19 17:37 IMPRESSION: NO ACUTE RADIOGRAPHIC FINDING IN THE CHEST. Plan Health Concerns: Morbidities increase his readmission risk. Plan of Treatment: Close outpatient follow up and emphasis on medication and lifestyle changes compliance. Goals: Maintain on appropriate medication management for his morbidities. Stroke Is this a Stroke Patient?: No Acute Heart Failure - Is this a Heart Failure Patient?: No
--- NOTE | 2019-09-08 19:17 | DRAGON STRESS TEST REPORT ---
Intravenous Lexiscan Cardiolite stress test using single photon emmision computerized tomography. Date of procedure: 09/08/2019. Ordering Provider: Dr. Bey.Patient's status: In Patient. Indication: Chest pain. Coronary risk factors: Age, and diabetes mellitus. Resting EKG: Sinus Rhythm. Within Normal Limits. Stress EKG: No changes of ischemia. The patient had no chest pain or discomfort, and there were no arrhythmias seen Reason for termination: Protocol. Conclusions: Normal EKG and hemodynamic response to IV Lexiscan. Nuclear data: At rest the patient was given 10.90 millicuries of technetium 99m sestamibi injected intravenously. As per protocol rest non gated SPECT images were obtained. Subsequently the patient was given intravenous Lexiscan at a dose of 0.4 mg in 5 mL intravenously, followed by flush with normal saline. Subsequently the stress dose of 30.2 millicuries of technetium 99m sestamibi was injected intravenously. As per protocol stress gated images were obtained. Nuclear interpretation: Review of images showed that all segments of the myocardium had normal perfusion at rest, and normal perfusion post stress with IV Lexiscan. All segments of the myocardium had normal motion, contraction, and thickening by gated study. T. I D. ratio was read as abnormal at 1.27 by the computer. Visually this is not reliable, and visually T I D ratio is normal. There is no transient ischemic dilatation of the left ventricle. Computer read rest, and stress left ventricular ejection fraction were 66 %, and 61 %, respectively. Conclusion: 1. There is no scintigraphic evidence of Lexiscan induced myocardial ischemia. 2. There is no scintigraphic evidence of myocardial infarction/scar. Recommendations: Aggressive risk factor modification, and treating the underlying co- morbidities. [facility]
== END 2019-09-08 18:29 | disposition home or self-care (01) ==
LOC: ER 14:20 → INTOOBSV 19:20 → EH 19:20 → 3N 09-08
PROVIDERS: ADMIT Internal Medicine Geriatric Medicine; ATTEND Internal Medicine Geriatric Medicine
DX: R07.89 Other chest pain (principal); E10.40 Type 1 diabetes mellitus with diabetic neuropathy, unspecified; I10 Essential (primary) hypertension; J44.9 Chronic obstructive pulmonary disease, unspecified; R00.2 Palpitations; R68.83 Chills (without fever); M15.0 Primary generalized (osteo)arthritis; Z79.4 Long term (current) use of insulin; Z79.82 Long term (current) use of aspirin; Z79.899 Other long term (current) drug therapy; Z82.49 Family history of ischemic heart disease and other diseases of the circulatory system; Z87.891 Personal history of nicotine dependence; Z82.3 Family history of stroke; Z79.51 Long term (current) use of inhaled steroids; Z23 Encounter for immunization; Z87.19 Personal history of other diseases of the digestive system
CPT/HCPCS: 93005; 99285; 36415 ×2; 82553 ×2; 82962; 82550 ×2; 85025 ×2; 80053 ×2; 84484 ×2; 83036; 80061; 93017; 71045; 78452; 90686; 93010; A9500; J2785; J1650; Q9969; J3490

== ENCOUNTER → 2020-08-22 | Outpatient (CLI) | payer MEDICAID ==
[2020-08-22 09:33] VITALS: BP 127/62
--- NOTE | 2020-08-22 09:33 | ER RDC ASSESSMENT REPORT ---
Intake - In the Last 14 days Have you traveled outside [place]?: No Have you been in close contact with someone CONFIRMED: No Worked in Healthcare?: No - Symptoms Subjective Fever([place] feverish): No Chills: Yes Muscule Aches: No Runny Nose: No Sore Throat: No Cough (New or worsening chronic cough): Yes Shortness of breath: Yes Nausea or Vomiting: No Headache: No Abdominal Pain: No Diarrhea(3 or more loose stools in last 24 hours): No - Do you have any of the following Chronic lung disease: Asthma or emphysema or COPD: Yes Cystic Fibrosis: No Diabetes: Yes High Blood Pressure: Yes Cardiovascular Disease: Yes Chronic Kidney Disease: No Chronic Liver Disease: No Chronic blood disorder like Sickle Cell Disease: No Weak immune system due to disease or medication: No Neurologic condition that limits movement: No Developmental delay - Moderate to Severe: No Morbid Obesity (>100 pounds over ideal weight): No - Objective Temperature: 97.9 F Pulse Rate: 90 Respiratory Rate: 18 Blood Pressure: 127/62 O2 Sat by Pulse Oximetry: 98 Objective: Given above, testing performed: Flu and Covid Disposition: Home; Selfcare General - General Stated Complaint: Cough Time Seen by Provider: 08/22/20 09:15 Mode of Arrival: Ambulatory Information source: Patient - HPI Notes: 50-year-old male presents to [facility] clinic for COVID-19 testing. Patient reports no known contact with Covid positive individual. Onset of symptoms 08/18/2020. Patient is reporting chills, cough that is occasionally productive of clear phlegm, and mild shortness of breath with exertion. He does have underlying COPD and states he has not needed to use his nebulizer much more than baseline. Denies any fever, myalgia, rhinorrhea or sore throat, GI upset, or headache. - Related Data Allergies/Adverse Reactions: Iodinated Contrast Media Allergy (Severe, Verified 07/01/19 07:31) Anaphylaxis iodine Allergy (Severe, Verified 07/01/19 07:31) Anaphylaxis Penicillins Allergy (Severe, Verified 07/01/19 07:31) throat swelling Shellfish * [Shellfish] Allergy (Severe, Verified 07/01/19 07:31) Anaphylaxis Past Medical History - General Information source: Patient - Social History Smoking Status: Never Smoker Family History: Reviewed & Not Pertinent, CAD, DM - Relatives have both type I and type II diabetes respectively - Past Medical History Cardiac Medical History: Reports: Hx Hypertension Denies: Hx Coronary Artery Disease, Hx DVT, Hx Heart Attack Pulmonary Medical History: Reports: Hx COPD, Hx Pneumonia - YEARS AGO Denies: Hx Asthma, Hx Bronchitis EENT Medical History: Reports: None Neurological Medical History: Reports: None. 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 Denies: Hx Peritoneal Dialysis Malignancy Medical History: Reports None GI Medical History: Reports: Hx Hiatal Hernia Musculoskeletal Medical History: Reports Hx Arthritis - GENERALIZED Skin Medical History: Reports None Psychiatric Medical History: Reports: Hx Depression Traumatic Medical History: Reports: None Infectious Medical History: Reports: None Past Surgical History: Reports: Hx Orthopedic Surgery - L HIP Physical Exam - General General appearance: Appears well, Alert In distress: None Notes: PHYSICAL EXAMINATION: GENERAL: Well-appearing and in no acute distress. HEAD: Atraumatic, normocephalic. EYES: sclera anicteric, conjunctiva are normal. ENT: nares patent. Moist mucous membranes. NECK: Normal range of motion, supple without lymphadenopathy. LUNGS: No increased work of breathing. Lung sounds CTAB and equal. No wheezes rales or rhonchi. HEART: Regular rate and rhythm without murmurs. ABDOMEN: Soft, nontender, normal bowel sounds, no guarding. EXTREMITIES: Normal range of motion, no pitting edema. No cyanosis. NEUROLOGICAL: A&O x 3. Normal speech. PSYCH: Normal mood, normal affect. SKIN: Warm, Dry, normal turgor, no rashes or lesions noted Patient Education/Counseling Counseling/Education: Patient presents with symptoms associated with possible Covid 19 infection. Patient does not have emergency worrying symptoms such as difficulty breathing, shortness of breath, chest pain, pressure, confusion or cyanosis. Patient appears suitable for discharge as vital signs are stable and patient is nontoxic in appearance. Good return precautions have been discussed with patient, patient verbalized understanding and is agreeable with discharge plan of care at this time. Guidance for worsening S/SX: As a person under investigation for Covid 19, the [facility], division of public health advises you to adhere to the following guidance until your test results are reported to you. If your test result is positive, you will receive additional information from your provider and your local health department at that time. Remain at home until you are cleared by the health provider or public health authorities. Keep a log of visitors to your home, notify any visitors to your home of your isolation status. If you plan to move to a new address or leave the county, notify the local health department in your County. Call your doctor or seek care if you have an urgent medical need. Before seeking medical care, call ahead to get instructions from the provider before arriving at the medical office clinic or hospital. Notify them that you are being tested for the virus that causes Covid 19 so that arrangements can be made, as necessary, to prevent transmission to others in the healthcare setting. Next, notify the local health department in your county. If a medical emergency arises and you need to call 911, inform the first responders that you are being tested for the virus that causes Covid 19. Next, notify the local health department in your county. RDC Discharge - Discharge Clinical Impression: Encounter for screening for COVID-19 Upper respiratory infection Qualifiers: URI type: unspecified URI Qualified Code(s): J06.9 - Acute upper respiratory infection, unspecified Condition: Good Disposition: Home; Selfcare
[2020-08-22 11:50] LABS: A TYPE INFLUENZA AG NEGATIVE (NEGATIVE); B INFLUENZA AG NEGATIVE (NEGATIVE)
== END ==
LOC: RDC 08:52
PROVIDERS: ATTEND Registered Nurse
DX: J06.9 Acute upper respiratory infection, unspecified (principal); Z20.822 Contact with and (suspected) exposure to COVID-19; R68.83 Chills (without fever); R05 Cough; R06.02 Shortness of breath; I10 Essential (primary) hypertension; E11.9 Type 2 diabetes mellitus without complications; J44.9 Chronic obstructive pulmonary disease, unspecified; M13.80 Other specified arthritis, unspecified site; Z88.0 Allergy status to penicillin; Z88.1 Allergy status to other antibiotic agents; Z91.041 Radiographic dye allergy status; Z91.013 Allergy to seafood; Z91.048 Other nonmedicinal substance allergy status; K44.9 Diaphragmatic hernia without obstruction or gangrene
CPT/HCPCS: 87635; 87804; 99202; 99211; C9803